=== PATIENT | female | born 2000 | race Caucasian/White ===

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

== ENCOUNTER → 2021-02-18 10:49 | Outpatient (BNVA) | payer MEDICAID, SELFPAY | PROVIDERS: PCP Family Medicine; Visit Provider Nurse Practitioner | DX: R11.2 Nausea with vomiting, unspecified (principal) | CPT/HCPCS: 81000 ==

== ENCOUNTER → 2021-03-29 12:10 | Outpatient (BNVA) | payer MEDICAID, SELFPAY | PROVIDERS: PCP Family Medicine; Visit Provider Obstetrics & Gynecology | DX: Z34.90 Encounter for supervision of normal pregnancy, unspecified, unspecified trimester (principal); F17.219 Nicotine dependence, cigarettes, with unspecified nicotine-induced disorders; F31.81 Bipolar II disorder; F41.8 Other specified anxiety disorders; B00.9 Herpesviral infection, unspecified | CPT/HCPCS: 87491; 87591; 87661 ==

== ENCOUNTER → 2021-04-23 13:06 | Outpatient (BNVA) | payer MEDICAID, SELFPAY | PROVIDERS: PCP Family Medicine; Visit Provider Obstetrics & Gynecology | DX: Z34.80 Encounter for supervision of other normal pregnancy, unspecified trimester (principal) | CPT/HCPCS: 81000; 84443; 85025; 86592; 86762; 86803; 86850; 86900; 87340; 87806 ==

== ENCOUNTER → 2021-05-28 12:50 | Outpatient (BNVA) | payer MEDICAID, SELFPAY | PROVIDERS: PCP Family Medicine; Visit Provider Obstetrics & Gynecology | DX: Z34.90 Encounter for supervision of normal pregnancy, unspecified, unspecified trimester (principal) | CPT/HCPCS: 80307; 81000; 87086 ==

== ENCOUNTER 2021-06-21 10:00 | Outpatient (CLI) | payer MEDICAID, SELFPAY ==
[2021-06-21 10:16] VITALS: BP 118/60; PULSE 89; TEMP 35.8
[2021-06-21 10:45] LABS: Actim Prom Negative
== END 2021-06-21 10:40 | disposition home or self-care (01) ==
LOC: OPOB 10:02 → OBGYN 10:07
PROVIDERS: PCP Family Medicine; Visit Provider Obstetrics & Gynecology
DX: O26.899 Other specified pregnancy related conditions, unspecified trimester (principal); Z3A.00 Weeks of gestation of pregnancy not specified; N89.8 Other specified noninflammatory disorders of vagina
CPT/HCPCS: 81000; 84112; 99211

== ENCOUNTER → 2021-07-27 14:06 | Outpatient (BNVA) | payer MEDICAID, SELFPAY | PROVIDERS: PCP Family Medicine; Visit Provider Obstetrics & Gynecology | DX: Z34.90 Encounter for supervision of normal pregnancy, unspecified, unspecified trimester (principal); B00.9 Herpesviral infection, unspecified; F17.219 Nicotine dependence, cigarettes, with unspecified nicotine-induced disorders; F31.81 Bipolar II disorder; F41.8 Other specified anxiety disorders | CPT/HCPCS: 81000; 82950; 85025 ==

== ENCOUNTER 2021-07-31 00:15 | Emergency (ER) | payer MEDICAID, SELFPAY ==
[2021-07-31 00:20] VITALS: BP 106/72; PULSE 109; RESP 16; O2SAT 96; BMI 22.4
[2021-07-31 00:53] VITALS: BP 119/72; PULSE 118; RESP 18; O2SAT 99
[2021-07-31 01:03] LABS: Basophils # 0.1 10^3/uL (0.0-0.1); Basophils % 0.5 %; Eosinophils # 0.1 10^3/uL (0.0-0.8); Eosinophils % 0.7 %; Hematocrit 38.1 % (37.0-47.0); Lymphocytes # 0.7 10^3/uL (1.5-6.5); Lymphocytes % 3.9 %; Mean Corpuscular HGB Conc 34.1 g/dL (30.0-36.0); Mean Corpuscular Hemoglobin 31.5 pg (28.0-34.0); Mean Corpuscular Volume 92.3 fl (81-99); Mean Platelet Volume 10.7 fL (7.4-10.4); Monocytes # 1.2 10^3/uL (0.2-0.9); Monocytes % 7.1 %; Neutrophils # 14.31 10^3/uL (1.8-8.0); Neutrophils % 85.1 %; Nucleated Red Blood Cells % 0 %; Platelet Count 247 10^3/cmm (130-400); Red Blood Count 4.13 10^6/uL (4.1-5.3); Red Cell Distribution Width 12.6 % (12.1-15.1); White Blood Count 16.8 10^3/uL (4.5-13.0)
[2021-07-31] MEDS: metoclopramide 5 mg/mL SDV 2 mL 10 MG IVP (01:08)
[2021-07-31] MEDS: ondansetron 2 mg/ML SDV 2 mL 4 MG IVP (01:08)
[2021-07-31] MEDS: sodium chloride 0.9% 1,000 ML 999 ML IV ×2 (01:08→02:42)
--- NOTE | 2021-07-31 01:18 | PC.NURSE ---
Doppler FHT 172
[2021-07-31 01:23] VITALS: BP 107/55; PULSE 103; RESP 20; O2SAT 96
[2021-07-31 01:24] LABS: Alanine Aminotransferase 9 U/L (0-33); Albumin Level 4.1 g/dL (3.5-5.2); Alkaline Phosphatase 103 IU/L (35-105); Anion Gap 23.8 (5-19); Aspartate Amino Transferase 16 U/L (0-32); Blood Urea Nitrogen 13 mg/dL (6-20); Calcium 8.9 mg/dL (8.5-10.5); Carbon Dioxide 16 mmol/L (22-29); Chloride 101 mmol/L (98-107); Globulin 3.6 g/dL (1.3-4.6); Glomerular Filtration Rate 203.5 mL/min (90-130); Glucose 96 mg/dL (65-115); Lipase 33 U/L (13-60); Osmolality Calculated 284 mOsm/kg (285-295); Potassium 3.8 mmol/L (3.5-5.1); Sodium 137 mmol/L (136-145); Total Bilirubin 0.5 mg/dL (0.15-1.2); Total Protein 7.7 g/dL (6.6-8.7)
[2021-07-31 01:53] VITALS: BP 95/50; PULSE 101; RESP 18; O2SAT 97
[2021-07-31 02:09] LABS: Add Urine Microscopic? NO; Charge for UA Resulting for Rev
--- NOTE | 2021-07-31 02:15 | ED_ITS ---
HPI - Nausea/Vomiting/Diarrhea General: Chief complaint: Nausea/Vomiting/Diarrhea Stated complaint: N/V/D Time Seen by Provider: 07/31/21 00:36 Source: patient History of Present Illness: Healthy 21-year-old G2, P1 female at 30 weeks of . She presents with 3 days of nausea vomiting and diarrhea. She notes the nausea and vomiting started a couple of days ago, the diarrhea started today. She denies significant fever. She denies cough, but feels mildly short of breath. No sick contacts. She is still feeling her baby move. She has not lost any fluid or had any vaginal bleeding. No history of belly surgery. MD elicited complaint: nausea, vomiting and diarrhea Pertinent past history: other Onset (ago): day(s) Description of vomiting: watery Description of diarrhea: watery Associated nausea: Yes Associated abdominal pain: No Location of pain: None Quality: cramping (Some pelvic cramping) Relieving factors: none Associated symtoms: Reports decreased urine output, anorexia and nausea; Denies bloating, change in vision, chest pain, cough, fecal incontinence or headache(s) Treatment prior to arrival: immodium Review of Systems Const: Denies: fever(s) or chills Eyes: Denies: change in vision ENMT: Denies: throat pain Card: Denies: chest pain Resp: Reports: dyspnea; Denies: productive cough or non-productive cough GI: Reports: nausea, vomiting and GI cramping; Denies: abdominal pain, hematemesis, bloating, fecal incontinence or hematochezia : Denies: flank pain Neuro: Denies: headache(s) PFSH ED PFSH: Medical History ADHD Bipolar 2 disorder Cluster B personality disorder Depression with anxiety PTSD (post-traumatic stress disorder) Surgical History No pertinent past surgical history Family History Grandmother Cancer Paternal--unknown Diabetes Paternal Hyperlipidemia Paternal Hypertension Paternal Stroke Paternal Grandfather Cancer Paternal--unknown Hyperlipidemia Paternal Diabetes Paternal Hypertension Paternal Stroke Paternal Other Alcoholism Psychiatric illness Denies family history of CAD (coronary artery disease) Clotting disorder Chronic kidney disease (CKD) Bleeding disorder Physical Exam Const: GENERAL APPEARANCE: cooperative; not frail appearing HENMT: COMMON NORMALS: normocephalic, atraumatic and Normal external nose present HEAD & SCALP: normocephalic and atraumatic FACE & SINUS: normal facial exam NOSE: Normal external nose present Eye: COMMON NORMALS: Equal, round and reactive pupils present and EOMs intact bilaterally PUPIL: Yes Equal, round and reactive pupils present Neck/C-Spine: COMMON NORMALS: full ROM Chest: CHEST: Yes Symmetrical chest wall rise Cardio: COMMON NORMALS: regular rhythm RATE: tachycardic RHYTHM: regular rhythm GI: COMMON NORMALS: Soft to palpation INSPECTION: Yes gravid abdomen PALPATION: Yes Soft to palpation Extremity: COMMON NORMALS: normal to inspection Neuro: DILIP COMA SCALE: document GCS findings [place] coma scale eye opening: Spontaneous Dilip coma scale verbal response: Orientated [place] coma scale motor response: Obey commands Dilip coma scale total score: 15 Course Vital Signs: Vital signs: Vital Signs Pulse Rate 100 07/31/21 03:34 Respiratory Rate 16 07/31/21 03:34 Blood Pressure 122/71 07/31/21 03:34 Pulse Oximetry 98 07/31/21 03:34 MDM - Nausea/Vomiting/Diarrhea Medical Decision Making Belly is grossly nontender. She is afebrile. She does appear dry clinically. Her white blood cell count is 16.8 with 85% neutrophils. Her bicarbonate level 16. She has 3+ ketones in her urine without UTI. She is feeling much improved after 2 L bolus, with Zofran and Reglan. Her COVID-19 is negative. She will be allowed home. Lab Data : 07/31/21 00:45 07/31/21 00:45 Laboratory Results WBC 16.8 10^3/uL (4.5-13.0) H 07/31/21 00:45 RBC 4.13 10^6/uL (4.1-5.3) 07/31/21 00:45 Hgb 13.0 g/dL (11.5-15.3) 07/31/21 00:45 Hct 38.1 % (37.0-47.0) 07/31/21 00:45 MCV 92.3 fl (81-99) 07/31/21 00:45 MCH 31.5 pg (28.0-34.0) 07/31/21 00:45 MCHC 34.1 g/dL (30.0-36.0) 07/31/21 00:45 RDW 12.6 % (12.1-15.1) 07/31/21 00:45 Plt Count 247 10^3/cmm (130-400) 07/31/21 00:45 MPV 10.7 fL (7.4-10.4) H 07/31/21 00:45 Neut % (Auto) 85.1 % 07/31/21 00:45 Lymph % (Auto) 3.9 % 07/31/21 00:45 [place] % (Auto) 7.1 % 07/31/21 00:45 Eos % (Auto) 0.7 % 07/31/21 00:45 Baso % (Auto) 0.5 % 07/31/21 00:45 Neut # (Auto) 14.31 10^3/uL (1.8-8.0) H 07/31/21 00:45 Lymph # (Auto) 0.7 10^3/uL (1.5-6.5) L 07/31/21 00:45 [place] # (Auto) 1.2 10^3/uL (0.2-0.9) H 07/31/21 00:45 Eos # (Auto) 0.1 10^3/uL (0.0-0.8) 07/31/21 00:45 Baso # (Auto) 0.1 10^3/uL (0.0-0.1) 07/31/21 00:45 Nucleated RBC % (auto) 0 % 07/31/21 00:45 Nucleated RBCs # 0.0 /100WBC 07/31/21 00:45 Sodium 137 mmol/L (136-145) 07/31/21 00:45 Potassium 3.8 mmol/L (3.5-5.1) 07/31/21 00:45 Chloride 101 mmol/L (98-107) 07/31/21 00:45 Carbon Dioxide 16 mmol/L (22-29) L 07/31/21 00:45 Anion Gap 23.8 (5-19) H 07/31/21 00:45 BUN 13 mg/dL (6-20) 07/31/21 00:45 Creatinine 0.4 mg/dL (0.5-0.9) L 07/31/21 00:45 GFR Calculation 203.5 mL/min (90-130) H 07/31/21 00:45 Glucose 96 mg/dL (65-115) 07/31/21 00:45 Calculated Osmolality 284 mOsm/kg (285-295) L 07/31/21 00:45 Calcium 8.9 mg/dL (8.5-10.5) 07/31/21 00:45 Total Bilirubin 0.5 mg/dL (0.15-1.2) 07/31/21 00:45 AST 16 U/L (0-32) 07/31/21 00:45 ALT 9 U/L (0-33) 07/31/21 00:45 Alkaline Phosphatase 103 IU/L (35-105) 07/31/21 00:45 Total Protein 7.7 g/dL (6.6-8.7) 07/31/21 00:45 Albumin 4.1 g/dL (3.5-5.2) 07/31/21 00:45 Globulin 3.6 g/dL (1.3-4.6) 07/31/21 00:45 Lipase 33 U/L (13-60) 07/31/21 00:45 Urine Color Yellow (Yellow) 07/31/21 01:55 Urine Appearance Clear (CLEAR) 07/31/21 01:55 Urine pH 5 (5-7) 07/31/21 01:55 Ur Specific [place] 1.025 (1.005-1.030) 07/31/21 01:55 Urine Protein Neg (Negative) 07/31/21 01:55 Urine Glucose (UA) Norm (Normal) 07/31/21 01:55 Urine Ketones 3+ (Negative) H 07/31/21 01:55 Urine Blood Neg (Negative) 07/31/21 01:55 Urine Nitrate Negative (Negative) 07/31/21 01:55 Urine Bilirubin Neg (Negative) 07/31/21 01:55 Urine Urobilinogen Norm mg/dL (Negative) 07/31/21 01:55 Ur Leukocyte Esterase Negative (Negative) 07/31/21 01:55 SARS-CoV-2 Ag (Rapid) Negative (Negative) 07/31/21 01:55 Discharge Plan Discharge Patient Disposition: Home Clinical Impression: Gastroenteritis Condition: Stable Prescriptions: New ondansetron 4 mg film 4 mg PO DAILY PRN (Reason: nausea and vomiting) Qty: 10 0RF No Action docusate sodium [Colace] 100 mg capsule 100 mg PO BID PRN0RF folic acid 1 mg tablet 1 mg PO DAILY 0RF Gummies 400 mcg-35 mg- 25 mg-5 mg tablet,chewable PO 0RF Discharge Orders: Discharge ED (Routine); Ordered 07/31/21 Ordered By: Vinayak Melendez Referrals: Mirian Pendleton DO [Primary Care Provider] - 1-3 days Discharge Diet: Advance as tolerated and Clear Liquid Activity Restrictions/Additional Instructions: Take the medication you were prescribed every 6 hours while awake for the first 48 hours, then as needed. Return for vomiting liquids despite treatment, fever greater than 100, loss of your water, vaginal bleeding, failure to feel your baby move for an hour, blood in the stool, any other concerning symptoms. Coding Level of Care Code ED Delivery Room Supervisor for Javierg Fwd Exam Comprehensive
[2021-07-31 02:26] LABS: Bilirubin Urine Neg (Negative); Blood Urine Neg (Negative); Glucose Urine UA Norm (Normal); Ketones Urine 3+ (Negative); Leukocyte Esterase Urine Negative (Negative); Nitrate Urine Negative (Negative); Protein Urine Neg (Negative); Specific Gravity, Urine 1.025 (1.005-1.030); Urine Appearance Clear (CLEAR); Urine Color Yellow (Yellow); Urobilinogen Urine Norm (Negative); pH Urine 5 (5-7)
[2021-07-31 02:31] LABS: SARS Covid-2 Antigen Negative (Negative)
[2021-07-31 03:34] VITALS: BP 122/71; PULSE 100; RESP 16; O2SAT 98
== END 2021-07-31 03:35 | disposition home or self-care (01) ==
PROVIDERS: Physician Assistant; Emergency Provider Emergency Medicine; PCP Family Medicine
DX: O99.613 Diseases of the digestive system complicating pregnancy, third trimester (principal); K52.9 Noninfective gastroenteritis and colitis, unspecified; O21.8 Other vomiting complicating pregnancy; Z3A.30 30 weeks gestation of pregnancy; Z20.822 Contact with and (suspected) exposure to COVID-19
CPT/HCPCS: 80053; 81003; 83690; 85025; 87426; 96361; 96374; 96375; 99284; J2405; J2765; J7030

== ENCOUNTER → 2021-08-18 11:15 | Outpatient (BNVA) | payer MEDICAID, SELFPAY | PROVIDERS: PCP Family Medicine; Visit Provider Obstetrics & Gynecology | DX: Z34.80 Encounter for supervision of other normal pregnancy, unspecified trimester (principal) | CPT/HCPCS: 81000 ==

== ENCOUNTER → 2021-08-30 11:07 | Outpatient (BNVA) | payer MEDICAID, SELFPAY | PROVIDERS: PCP Family Medicine; Visit Provider Obstetrics & Gynecology | DX: Z34.80 Encounter for supervision of other normal pregnancy, unspecified trimester (principal) | CPT/HCPCS: 81000; 85025 ==

== ENCOUNTER → 2021-09-10 09:40 | Outpatient (BNVA) | payer MEDICAID, SELFPAY | PROVIDERS: PCP Family Medicine; Visit Provider Obstetrics & Gynecology | DX: Z34.90 Encounter for supervision of normal pregnancy, unspecified, unspecified trimester (principal) | CPT/HCPCS: 81000; 87081 ==

== ENCOUNTER → 2021-09-16 13:36 | Outpatient (BNVA) | payer MEDICAID, SELFPAY | PROVIDERS: PCP Family Medicine; Visit Provider Obstetrics & Gynecology | DX: Z34.90 Encounter for supervision of normal pregnancy, unspecified, unspecified trimester (principal) | CPT/HCPCS: 81000 ==

== ENCOUNTER 2021-09-29 22:42 | Inpatient (IN) | payer MEDICAID, SELFPAY ==
[2021-09-29] VITALS (17 sets, daily range): BP systolic 96–115; BP diastolic 55–72; PULSE 66–112; RESP 18; TEMP 35.8; O2SAT 99–100; BMI 23.1
[2021-09-29] MEDS: dextrose 5%-lactated ringers 1,000 ML 999 ML IV (20:00)
[2021-09-29] MEDS: dextrose 5%-lactated ringers 1,000 ML 125 ML IV (21:55)
[2021-09-29 22:00] LABS: Basophils # 0.1 10^3/uL (0.0-0.1); Basophils % 0.4 %; Eosinophils # 0.1 10^3/uL (0.0-0.8); Eosinophils % 0.4 %; Hematocrit 40.7 % (37.0-47.0); Hemoglobin 13.4 g/dL (11.5-15.3); Lymphocytes % 6.6 %; Mean Corpuscular HGB Conc 32.9 g/dL (30.0-36.0); Mean Corpuscular Hemoglobin 30.2 pg (28.0-34.0); Mean Corpuscular Volume 91.9 fl (81-99); Monocytes # 1.1 10^3/uL (0.2-0.9); Monocytes % 7.3 %; Neutrophils % 84.1 %; Nucleated Red Blood Cells % 0 %; Platelet Count 361 10^3/cmm (130-400); Red Blood Count 4.43 10^6/uL (4.1-5.3); Red Cell Distribution Width 14.7 % (12.1-15.1); White Blood Count 14.5 10^3/uL (4.5-13.0)
[2021-09-29] MEDS: fentaNYL 50 mcg/mL INJ 2mL IVP ×2 (22:01→23:22)
[2021-09-29 22:20] LABS: Amphetamines Screen Urine Negative (Negative); Barbiturates Screen Urine Negative (Negative); Benzodiazepines Screen Urine Negative (Negative); Cocaine Screen Urine Negative (Negative); Opiate Screen Urine Negative (Negative); PCP Screen Urine Negative (Negative); THC Screen Urine Positive (Negative)
[2021-09-29] MEDS: ondansetron 2 mg/ML SDV 2 mL 4 MG IVP (23:23)
[2021-09-30] VITALS (38 sets, daily range): BP systolic 93–141; BP diastolic 50–102; PULSE 65–104; RESP 17–19; TEMP 36.4–37.1; O2SAT 93–100
[2021-09-30] MEDS: fentaNYL 50 mcg/mL INJ 2mL IVP ×4 (01:02→04:59)
[2021-09-30] MEDS: dextrose 5%-lactated ringers 1,000 ML 125 ML IV (01:03)
--- NOTE | 2021-09-30 02:17 | PM.OPHPUD ---
Labor & Delivery H&P Update Date of Procedure: September 30, 2021 Date H&P Performed: 09/16/21 H&P update information: I have reviewed H&P completed within last 30 days, I have examined patient prior to procedure and Changes to prior documentation as noted here Changes to previous documentation: The patient presents to labor and delivery with complaints of painful contractions. Her cervix made change to 4/80/-3 and she will be admitted for labor management. Admission Diagnosis: IUP@ 39 weeks gestation Related Problem List Diagnoses (1) Supervision of normal : (2) HSV-2 (herpes simplex virus 2) infection: (3) Nicotine dependence, cigarettes, with unspecified nicotine-induced disorders: (4) Bipolar 2 disorder: (5) Depression with anxiety:
[2021-09-30] MEDS: ondansetron 2 mg/ML SDV 2 mL 4 MG IVP (03:23)
--- NOTE | 2021-09-30 06:19 | P.PCNOB_ITS ---
Delivery Note: Date of delivery: September 30, 2021 Pre-delivery diagnoses: iup@ 39 weeks Post-delivery diagnoses: same-delivered Procedure: Delivering Physician: hilaria Estimated blood loss (mL): 10 Findings: term female in the REED presentation Pre-Delivery Course: The patient was admitted for active labor. An exam was performed and she had no active herpes lesions visualized. She had AROM at 6cm dilation. She progressed to complete cervical dilation Delivery: The patient had complete cervical dilation and began to push. The head delivered in the REED position over an intact perineum under no anesthesia. The nose and mouth were bulb suctioned. The shoulders and body delivered atraumatically. The baby was placed onto the mother's abdomen. The cord was clamped and cut. The placenta delivered spontaneously. It was inspected and found to be intact. Inspection of the perineum revealed no lacerations and no repair was required. Estimated blood loss 10 mL. Apgars on baby were 8 at 1 minute and 9 at 5 minutes. Weight of baby is 7 pounds 6 ounces. Mother and baby were stable post delivery. History History History 2 Term 1 Miscarriages/Ectopic 0 0 Living Children 1 Coding Level of Care Code Acute Geothermal Operating Engineer for Lynette Patricio
[2021-09-30] MEDS: valACYclovir 1,000 mg Tablet 1000 MG PO (08:02)
[2021-09-30] MEDS: ibuprofen 800 mg tablet PO ×3 (08:45→20:15)
[2021-09-30] MEDS: docusate sodium 100 mg Capsule PO ×2 (08:46→20:15)
[2021-09-30] MEDS: prenatal vitamin Capsule 1 CAP PO (08:46)
--- NOTE | 2021-09-30 13:45 | PC.NURSE ---
DFS immigration case worker talking with patient at this time.
[2021-09-30 19:45] LABS: Hematocrit 33.1 % (37.0-47.0); Hemoglobin 11.1 g/dL (11.5-15.3); Mean Corpuscular HGB Conc 33.5 g/dL (30.0-36.0); Mean Corpuscular Hemoglobin 30.2 pg (28.0-34.0); Mean Corpuscular Volume 89.9 fl (81-99); Mean Platelet Volume 11.1 fL (7.4-10.4); Platelet Count 336 10^3/cmm (130-400); Red Blood Count 3.68 10^6/uL (4.1-5.3); Red Cell Distribution Width 14.6 % (12.1-15.1); White Blood Count 13.8 10^3/uL (4.5-13.0)
[2021-09-30] MEDS: lanolin oint 7 gm 1 APPLIC TOPICAL (20:15)
[2021-10-01 04:00] VITALS: BP 105/70; PULSE 72; RESP 16; TEMP 36.8; O2SAT 98
--- NOTE | 2021-10-01 08:25 | P.DS_ITS ---
Discharge Providers Date of Admission: 09/29/21 22:42 Date of Discharge: October 01, 2021 Attending Provider at Admission: Florinda Morales MD Attending Provider at Discharge: Florinda Morales MD Primary Care Provider: Mirian Pendleton DO Diagnoses at Discharge Discharge Diagnosis (1) Supervision of normal : Status: Acute (2) HSV-2 (herpes simplex virus 2) infection: Status: Acute (3) Nicotine dependence, cigarettes, with unspecified nicotine-induced disorders: Status: Acute (4) Bipolar 2 disorder: Status: Chronic (5) Depression with anxiety: Status: Chronic Reason for Visit Reason for Visit: contractions Hospital Course Hospital Course The patient was admitted in active labor. She had spontaneous delivery of a term . She did well and was ready for discharge on day #1 Physical Exam Narrative: no concerns today Const: COMMON NORMALS: no acute distress, average body habitus, patient oriented x3, no limitations, healthy appearing, alert and well nourished GENERAL APPEARANCE: cooperative, comfortable, well kempt and well developed ORIENTATION/CONSCIOUSNESS: Yes awake, Yes oriented to person, Yes oriented to place and Yes oriented to time Resp: COMMON NORMALS: normal respiratory effort EFFORT & INSPECTION: Yes able to speak in complete sentences GI: COMMON NORMALS: Soft to palpation and non-tender PALPATION: Yes Soft to palpation Extremity: COMMON NORMALS: no calf tenderness Neuro: COMMON NORMALS: patient oriented x3 SENSORIUM/ORIENTATION: Yes alert, Yes oriented to person, Yes oriented to place and Yes oriented to time Psych: APPEARANCE: Yes well kempt Discharge Data Studies Completed and Pending Laboratory Results WBC 13.8 10^3/uL (4.5-13.0) H 09/30/21 18:50 RBC 3.68 10^6/uL (4.1-5.3) L 09/30/21 18:50 Hgb 11.1 g/dL (11.5-15.3) L 09/30/21 18:50 Hct 33.1 % (37.0-47.0) L 09/30/21 18:50 MCV 89.9 fl (81-99) 09/30/21 18:50 MCH 30.2 pg (28.0-34.0) 09/30/21 18:50 MCHC 33.5 g/dL (30.0-36.0) 09/30/21 18:50 RDW 14.6 % (12.1-15.1) 09/30/21 18:50 Plt Count 336 10^3/cmm (130-400) 09/30/21 18:50 MPV 11.1 fL (7.4-10.4) H 09/30/21 18:50 Neut % (Auto) 84.1 % 09/29/21 19:45 Lymph % (Auto) 6.6 % 09/29/21 19:45 [place] % (Auto) 7.3 % 09/29/21 19:45 Eos % (Auto) 0.4 % 09/29/21 19:45 Baso % (Auto) 0.4 % 09/29/21 19:45 Neut # (Auto) 12.20 10^3/uL (1.8-8.0) H 09/29/21 19:45 Lymph # (Auto) 1.0 10^3/uL (1.5-6.5) L 09/29/21 19:45 [place] # (Auto) 1.1 10^3/uL (0.2-0.9) H 09/29/21 19:45 Eos # (Auto) 0.1 10^3/uL (0.0-0.8) 09/29/21 19:45 Baso # (Auto) 0.1 10^3/uL (0.0-0.1) 09/29/21 19:45 Nucleated RBC % (auto) 0 % 09/29/21 19:45 Nucleated RBCs # 0.0 /100WBC 09/29/21 19:45 Urine Opiates Screen Negative ng/mL (Negative) 09/29/21 21:45 Ur Barbiturates Screen Negative ng/mL (Negative) 09/29/21 21:45 Ur Phencyclidine Scrn Negative ng/mL (Negative) 09/29/21 21:45 Ur Amphetamines Screen Negative ng/mL (Negative) 09/29/21 21:45 U Benzodiazepines Scrn Negative ng/mL (Negative) 09/29/21 21:45 Urine Cocaine Screen Negative ng/mL (Negative) 09/29/21 21:45 U Marijuana (THC) Screen Positive ng/mL (Negative) H 09/29/21 21:45 Vitals Last Vital Signs Temp 98.2 F 10/01/21 04:00 Pulse 72 10/01/21 04:00 Resp 16 10/01/21 04:00 BP 105/70 10/01/21 04:00 Pulse Ox 98 10/01/21 04:00 O2 Del Method 10/01/21 04:00 Discharge Plan Discharge Patient Disposition: Home Condition: Stable Prescriptions: Continued docusate sodium [Colace] 100 mg capsule 100 mg PO BID PRN Gummies 400 mcg-35 mg- 25 mg-5 mg tablet,chewable PO valacyclovir 1 gram tablet 1,000 mg PO DAILY Qty: 30 6RF Discharge Orders: Discharge Order (Routine); Ordered 10/01/21 Ordered By: Florinda Morales Patient Instructions: Opioid Safety Discharge Attestations Time Spent in Discharge Care*: less than 30 min Quality Metrics Clinical Quality Measures [ No reported AMI, CVA or VTE this stay] Coding Level of Care Code Acute Chg FW DC note Diagnoses Supervision of normal Z34.90 HSV-2 (herpes simplex virus 2) infection B00.9 Nicotine dependence, cigarettes, with unspecified nicotine-induced disorders F17.219 Bipolar 2 disorder F31.81 Depression with anxiety F41.8
[2021-10-01] MEDS: ibuprofen 800 mg tablet PO (11:36)
[2021-10-01] MEDS: docusate sodium 100 mg Capsule PO (11:36)
[2021-10-01] MEDS: prenatal vitamin Capsule 1 CAP PO (11:36)
[2021-10-01] MEDS: valACYclovir 1,000 mg Tablet 1000 MG PO (11:36)
[2021-10-01 12:00] VITALS: BP 110/67; PULSE 67; RESP 16; TEMP 36.5; O2SAT 99
== END 2021-10-01 12:05 | disposition home or self-care (01) | DRG 806 ==
LOC: OPOB 22:43 → OBGYN 22:43
PROVIDERS: Admitting Provider Obstetrics & Gynecology; PCP Family Medicine; Visit Provider Obstetrics & Gynecology
DX: O99.344 Other mental disorders complicating childbirth (principal); F31.81 Bipolar II disorder; Z37.0 Single live birth; O98.32 Other infections with a predominantly sexual mode of transmission complicating childbirth; O99.334 Smoking (tobacco) complicating childbirth; F17.210 Nicotine dependence, cigarettes, uncomplicated; Z3A.39 39 weeks gestation of pregnancy; F90.9 Attention-deficit hyperactivity disorder, unspecified type; F60.89 Other specific personality disorders; F41.9 Anxiety disorder, unspecified; F43.10 Post-traumatic stress disorder, unspecified; A60.00 Herpesviral infection of urogenital system, unspecified
CPT/HCPCS: 36415; 59025; 59409; 80306; 85025; 85027; 99211; J2405; J3010

== ENCOUNTER 2022-10-27 17:23 | Emergency (ER) | payer BC, MEDICAID, SELFPAY ==
[2022-10-27 17:30] VITALS: BP 118/72; PULSE 72; RESP 16; TEMP 36.3; O2SAT 99
--- NOTE | 2022-10-27 19:29 | W.ED.HA ---
HPI - Headache General: Chief Complaint: Headache Stated Complaint: migraines, dizzy, vomiting Time Seen by Provider: 10/27/22 19:11 History of Present Illness: Patient presents to the ER from urgent care with complaints of a migraine for the last 8 to 9 days. Patient's been able to not get any relief even though using the maximum amount of Tylenol [id number]. Patient states she had lots of nausea and vomiting has not been able to eat or drink anything. Patient does have a history of migraines and other than this 1 being worse it is similar to the ones in the past. Review of Systems General: Reports: 10 or more systems reviewed and unremarkable except in HPI and below PFSH ED PFSH: Medical History ADHD Bipolar 2 disorder Cluster B personality disorder Depression with anxiety PTSD (post-traumatic stress disorder) Surgical History No pertinent past surgical history Family History Grandmother Cancer Paternal--unknown Diabetes Paternal Hyperlipidemia Paternal Hypertension Paternal Stroke Paternal Grandfather Cancer Paternal--unknown Hyperlipidemia Paternal Diabetes Paternal Hypertension Paternal Stroke Paternal Other Alcoholism Psychiatric illness Denies family history of CAD (coronary artery disease) Clotting disorder Chronic kidney disease (CKD) Bleeding disorder Social History Smoking and tobacco status: current every day smoker Substance/Drug Use: never Physical Exam Const: COMMON NORMALS: no acute distress, average body habitus, patient oriented x3, no limitations, healthy appearing, alert and well nourished HENMT: COMMON NORMALS: normocephalic, atraumatic, hearing grossly normal bilaterally, external ears normal, Normal external nose present and moist oral mucous membranes HEAD & SCALP: normocephalic and atraumatic NOSE: Normal external nose present EXTERNAL EAR: Yes external ears normal Eye: COMMON NORMALS: Equal, round and reactive pupils present, EOMs intact bilaterally, conjunctivae normal and no scleral icterus CONJUNCTIVA: Yes conjunctivae normal PUPIL: Yes Equal, round and reactive pupils present Neck/C-Spine: COMMON NORMALS: full ROM, no lymphadenopathy, supple, no meningeal signs, no JVD and Thyroid normal THYROID: Thyroid normal Chest: COMMONS NORMALS: normal inspection of the chest and normal palpation of entire chest wall Resp: COMMON NORMALS: normal respiratory effort, No retractions, No use of accessory muscles and clear to auscultation bilaterally AUSCULTATION: clear to auscultation bilaterally Cardio: COMMON NORMALS: no JVD, regular rate, regular rhythm, S1 normal heart sound present, S2 normal heart sound present, No gallops present (Cardio), No clicks present (Cardio), No murmurs present (Cardio) and No rub (Cardio) RATE: regular rate RHYTHM: regular rhythm HEART SOUNDS: S1 normal heart sound present and S2 normal heart sound present GI: COMMON NORMALS: Normal to inspection, nondistended, normoactive bowel sounds present, Soft to palpation, non-tender, No hepatosplenomegaly present and no masses PALPATION: Yes Soft to palpation and Yes No hepatosplenomegaly present : COMMON NORMALS: Yes no CVA tenderness BLADDER/KIDNEY EXAM: Yes no CVA tenderness Back/Pelvis: COMMON NORMALS: no CVA tenderness Neuro: COMMON NORMALS: patient oriented x3, CN's II-XII intact bilaterally, moves all extremities, no focal motor deficits and no sensory deficits noted SENSORIUM/ORIENTATION: Yes alert MENINGEAL SIGNS: Yes no meningeal signs Course Vital Signs: Vital signs: Vital Signs Temperature 97.3 F L 10/27/22 17:30 Pulse Rate 72 10/27/22 17:30 Respiratory Rate 16 10/27/22 17:30 Blood Pressure 118/72 10/27/22 17:30 Pulse Oximetry 99 10/27/22 17:30 Oxygen Delivery Me thod Room Air 10/27/22 17:30 MDM - Headache Medical Decision Making Presents to the ER for migraine that will not go away. Patient's had 8 to 9 days. Went to urgent care and they sent her over here for further evaluation and treatment. Patient received 1 L bolus of normal saline, Reglan 10 mg, Toradol 30 mg, Benadryl 50 mg all IV, this relieved the pain from 10 to 4 out of 10 in relieve her nausea. Patient was then given Imitrex 6 mg subcu and discharged home to patient is to follow-up with her family practice doctor in the next 7 days or sooner as needed. Differential Diagnosis Likely migraine; Unlikely tension headache, subarachnoid hemorrhage, headache, meningitis, sinusitis or postconcussion syndrome Medical Records I reviewed the patient's medical records. Lab Data I reviewed the patient's lab results. Discharge Plan Discharge Patient Disposition: Home Clinical Impression: Migraine Qualifiers: Migraine type: unspecified Status migrainosus presence: without status migrainosus Intractability: not intractable Qualified Code(s): G43.909 - Migraine, unspecified, not intractable, without status migrainosus Condition: Stable Prescriptions: No Action epinephrine [EpiPen 2-Peter] 0.3 mg/0.3 mL auto-injector 0.3 mg IM Q15M PRN (Reason: anaphylaxis) Qty: 2 0RF Rx Instructions: for 3 doses Discharge Orders: Discharge ED (Routine); Ordered 10/27/22 Ordered By: Andrea Santos Referrals: Mirian Pendleton DO [Primary Care Provider] - 1 week Patient Instructions: Migraine Headache (ED) Activity Restrictions/Additional Instructions: Please follow-up with your family practice doctor next 7 days or sooner as needed. Please return to the ER if your symptoms return or worsen. Coding Level of Care Code ED Hardware Installation Coordinator for Lynette Patricio
[2022-10-27] MEDS: diphenhydrAMINE 50 mg/mL SDV 1mL IVP (19:41)
[2022-10-27] MEDS: metoclopramide 5 mg/mL SDV 2 mL 10 MG IVP (19:41)
[2022-10-27] MEDS: ketorolac 30 mg/mL INJ IVP (19:41)
[2022-10-27] MEDS: sodium chloride 0.9% 1,000 ML 999 ML IV (19:42)
[2022-10-27] MEDS: SUMAtriptan 6 mg/0.5 mL SDV SUBCUT (20:24)
[2022-10-27 20:26] VITALS: BP 118/73; PULSE 60; RESP 16; O2SAT 97
== END 2022-10-27 20:31 | disposition home or self-care (01) ==
PROVIDERS: Emergency Provider Emergency Medicine; PCP Family Medicine
DX: G43.909 Migraine, unspecified, not intractable, without status migrainosus (principal); F17.210 Nicotine dependence, cigarettes, uncomplicated
CPT/HCPCS: 96361; 96372; 96374; 96375; 99284; J1200; J1885; J2765; J3030; J7030

== ENCOUNTER 2022-10-29 15:36 | Emergency (ER) | payer BC, MEDICAID, SELFPAY ==
[2022-10-29 15:39] VITALS: BP 130/71; PULSE 64; RESP 15; TEMP 36.6; O2SAT 97
== END 2022-10-29 20:11 | disposition left against medical advice (07) ==
PROVIDERS: Emergency Provider Family Medicine; PCP Family Medicine
DX: Z53.21 Procedure and treatment not carried out due to patient leaving prior to being seen by health care provider (principal)

== ENCOUNTER 2023-02-16 09:27 | Emergency (ER) | payer BC, MEDICAID, SELFPAY ==
[2023-02-16 09:32] VITALS: BP 119/30; PULSE 103; RESP 16; TEMP 36.7; O2SAT 100; BMI 20.7
[2023-02-16 09:55] VITALS: BP 113/81; PULSE 95; RESP 18; O2SAT 98; O2SAT 99
[2023-02-16 10:03] LABS: Basophils # 0.1 10^3/uL (0.0-0.1); Basophils % 0.6 %; Eosinophils # 0.2 10^3/uL (0.0-0.8); Eosinophils % 1.4 %; Hematocrit 47.4 % (36-47); Lymphocytes # 1.3 10^3/uL (0.8-4.8); Lymphocytes % 8.8 %; Mean Corpuscular HGB Conc 34.6 g/dL (30-55); Mean Corpuscular Hemoglobin 32.9 pg (27-33); Mean Platelet Volume 9.4 fL (7.4-10.4); Monocytes # 0.8 10^3/uL (0.2-0.9); Monocytes % 5.6 %; Neutrophils # 12.51 10^3/uL (1.8-7.7); Neutrophils % 82.9 %; Nucleated Red Blood Cells % 0 %; Platelet Count 344 10^3/cmm (157-399); Red Blood Count 4.99 10^6/uL (3.85-5.65); Red Cell Distribution Width 12.6 % (12.1-15.1); White Blood Count 15.08 10^3/uL (3.29-11.43)
--- NOTE | 2023-02-16 10:08 | CT_ITS ---
WS: [id number] CT scan of the abdomen and pelvis with IV contrast. Additional two-dimensional coronal and sagittal r econstruction was performed. 02/16/2023 Clinical Data: abd pain Comparison: CT abdomen pelvis, 12/18/2017 DLP: 322.[address] scans at [facility] use at least one of these dose optimization techniques: automated e xposure control; mA and/or kV adjustment per patient size (includes targeted exams where dose is matc hed to clinical indication); or iterative reconstruction. Findings: The lower lungs show no nodules, masses or effusions. The liver, gallbladder, spleen, adrenal glands and pancreas are normal. The kidneys show equal bilateral contrast excretion with no cyst or masses. The abdominal aorta is normal in size. No appendicitis or diverticulitis is seen. The stomach, small bowel and colon show no abnormalities. No abscess, adenopathy, ascites, free air, mass or obstruction is seen. The bladder is unremarkable. No inguinal hernia is seen. There is an IUD in the region of the uterus. The bones of the lower thorax, lumbar spine, pelvis, and hips are normal. Impression: Negative CT scan of the abdomen and pelvis.
--- NOTE | 2023-02-16 10:08 | W.ED.ABDPA2 ---
HPI - Abdominal Pain General: Chief Complaint: Abdominal Pain Stated Complaint: abd pain,NV Time Seen by Provider: 02/16/23 09:41 Source: patient Mode of arrival: ambulatory History of Present Illness: 22-year-old female presents emergency room complaining of intermittent abdominal pain for the last several months with nausea and vomiting she has had some nausea today no fever sweats chills no dysuria urgency or frequency no medic easy melena hematemesis coffee-ground emesis MD elicited complaint: abdominal pain Onset (ago): month(s) Pain Consistency: intermittent Location: Suprapubic Severity: moderate Quality: cramping Radiation: none Exacerbating factors: nothing Relieving factors: nothing Associated Symptoms: Reports GI cramping; Denies anorexia, belching, bloating, change in bowel habits, change in stool character, chills, coffee ground emesis, constipation, diarrhea, dyspepsia, dysuria, excessive flatus, fever(s), heartburn, hematochezia, hematuria, hematemesis, fecal incontinence, loose stools, melena, nausea, poor appetite, syncope and vomiting Related Data: Date of Last Menstrual Period: 02/14/23 Review of Systems Const: Denies: fever(s) or chills Card: Denies: chest pain or syncope Resp: Denies: dyspnea GI: Reports: abdominal pain and GI cramping; Denies: nausea, vomiting, hematemesis, coffee ground emesis, heartburn, diarrhea, constipation, bloating, belching, excessive flatus, fecal incontinence, change in bowel habits, change in stool character, hematochezia or melena : Denies: dysuria, urinary frequency, urinary urgency or hematuria Musc: Denies: neck pain or back pain Skin/Breast: Denies: rash PFSH ED PFSH: Medical History Bipolar 2 disorder PTSD (post-traumatic stress disorder) Cluster B personality disorder ADHD Surgical History No pertinent past surgical history Family History Grandmother Cancer Paternal--unknown Diabetes Paternal Hyperlipidemia Paternal Hypertension Paternal Stroke Paternal Grandfather Cancer Paternal--unknown Hyperlipidemia Paternal Diabetes Paternal Hypertension Paternal Stroke Paternal Other Alcoholism Psychiatric illness Denies family history of CAD (coronary artery disease) Clotting disorder Chronic kidney disease (CKD) Anesthesia complication Bleeding disorder Lung disease Social History Smoking and tobacco/nicotine status: current every day tobacco/nicotine user cigarettes Packs smoked per day: 0.5 Alcohol intake: never Substance/Drug Use: current Substance/Drug use frequency: few times a week Lives independently: Yes Marital status: Single Number of children: 2 Current occupational status: employed Current occupation: [employer] needs: No Agree to transfusion: Yes Female Reproductive History: Date of last menstrual period: 02/14/23 Physical Exam Const: COMMON NORMALS: no acute distress GENERAL APPEARANCE: cooperative and comfortable ORIENTATION/CONSCIOUSNESS: Yes awake, Yes oriented to person, Yes oriented to place and Yes oriented to time HENMT: COMMON NORMALS: normocephalic, atraumatic and hearing grossly normal bilaterally HEAD & SCALP: normocephalic and atraumatic Resp: COMMON NORMALS: normal respiratory effort, No retractions, No use of accessory muscles and clear to auscultation bilaterally AUSCULTATION: clear to auscultation bilaterally Cardio: COMMON NORMALS: regular rate, regular rhythm and No murmurs present (Cardio) RATE: regular rate RHYTHM: regular rhythm GI: COMMON NORMALS: Soft to palpation and No hepatosplenomegaly present AUSCULTATION: Yes normoactive bowel sounds PALPATION: Yes Soft to palpation, No Tenderness to palpation present (GI), No Guarding due to palpation present (GI) and Yes No hepatosplenomegaly present Extremity: COMMON NORMALS: normal to inspection, capillary refill normal, no clubbing, cyanosis or edema, no calf tenderness and no pedal edema Neuro: SENSORIUM/ORIENTATION: Yes oriented to person, Yes oriented to place and Yes oriented to time Skin: COMMON NORMALS: no rashes or lesions noted GENERAL SKIN EXAM: no rashes or lesions noted Course Vital Signs: Vital signs: Vital Signs Temperature 98.0 F 02/16/23 09:32 Pulse Rate 99 02/16/23 11:15 Respiratory Rate 16 02/16/23 11:15 Blood Pressure 113/87 02/16/23 11:15 Pulse Oximetry 100 02/16/23 11:15 Oxygen Delivery Me thod Room Air 02/16/23 09:55 MDM - Abdominal Pain Medical Decision Making Mild elevation of white count CT negative urine unremarkable. No acute abdomen on exam. Mirena in place no displacement or abnormality patient offered IV fluids and antiemetics declined discharge home follow-up with primary care for her chronic abdominal pain may need further evaluation possibly including a HIDA scan or endoscopy which primary care can arrange for Differential Diagnosis Likely abdominal pain and gastroenteritis Medical Records I reviewed the patient's medical records. Lab Data I reviewed the patient's lab results. 02/16/23 09:55 02/16/23 09:55 Labs/Radiology: Laboratory Results WBC 15.08 10^3/uL (3.29-11.43) H 02/16/23 09:55 RBC 4.99 10^6/uL (3.85-5.65) 02/16/23 09:55 Hgb 16.40 g/dL (11.27-16.99) 02/16/23 09:55 Hct 47.4 % (36-47) H 02/16/23 09:55 MCV 95.0 fl (85-98) 02/16/23 09:55 MCH 32.9 pg (27-33) 02/16/23 09:55 MCHC 34.6 g/dL (30-55) 02/16/23 09:55 RDW 12.6 % (12.1-15.1) 02/16/23 09:55 Plt Count 344 10^3/cmm (157-399) 02/16/23 09:55 MPV 9.4 fL (7.4-10.4) 02/16/23 09:55 Neut % (Auto) 82.9 % 02/16/23 09:55 Lymph % (Auto) 8.8 % 02/16/23 09:55 [place] % (Auto) 5.6 % 02/16/23 09:55 Eos % (Auto) 1.4 % 02/16/23 09:55 Baso % (Auto) 0.6 % 02/16/23 09:55 Neut # (Auto) 12.51 10^3/uL (1.8-7.7) H 02/16/23 09:55 Lymph # (Auto) 1.3 10^3/uL (0.8-4.8) 02/16/23 09:55 [place] # (Auto) 0.8 10^3/uL (0.2-0.9) 02/16/23 09:55 Eos # (Auto) 0.2 10^3/uL (0.0-0.8) 02/16/23 09:55 Baso # (Auto) 0.1 10^3/uL (0.0-0.1) 02/16/23 09:55 Nucleated RBC % (auto) 0 % 02/16/23 09:55 Nucleated RBCs # 0.0 /100WBC 02/16/23 09:55 Sodium 140 mmol/L (136-145) 02/16/23 09:55 Potassium 3.8 mmol/L (3.5-5.1) 02/16/23 09:55 Chloride 100 mmol/L (98-107) 02/16/23 09:55 Carbon Dioxide 28 mmol/L (22-29) 02/16/23 09:55 Anion Gap 15.8 (5-19) 02/16/23 09:55 BUN 11 mg/dL (6-20) 02/16/23 09:55 Creatinine 0.5 mg/dL (0.5-0.9) 02/16/23 09:55 GFR Calculation 155.7 mL/min (90-130) H 02/16/23 09:55 Glucose 108 mg/dL (65-115) 02/16/23 09:55 Calculated Osmolality 290 mOsm/kg (285-295) 02/16/23 09:55 Calcium 9.5 mg/dL (8.5-10.5) 02/16/23 09:55 Total Bilirubin 0.4 mg/dL (0.15-1.2) 02/16/23 09:55 AST 21 U/L (0-32) 02/16/23 09:55 ALT 18 U/L (0-33) 02/16/23 09:55 Alkaline Phosphatase 85 U/L (35-105) 02/16/23 09:55 Total Protein 9.0 g/dL (6.6-8.7) H 02/16/23 09:55 Albumin 5.1 g/dL (3.5-5.2) 02/16/23 09:55 Globulin 3.9 g/dL (1.3-4.6) 02/16/23 09:55 Lipase 35 U/L (13-60) 02/16/23 09:55 HCG, Qual Negative (Negative) 02/16/23 09:55 Urine Color Yellow (Yellow) 02/16/23 09:45 Urine Appearance Cloudy (CLEAR) A 02/16/23 09:45 Urine pH 6 (5-7) 02/16/23 09:45 Ur Specific [place] 1.020 (1.005-1.030) 02/16/23 09:45 Urine Protein Neg (Negative) 02/16/23 09:45 Urine Glucose (UA) Norm (Normal) 02/16/23 09:45 Urine Ketones Negative (Negative) 02/16/23 09:45 Urine Blood Neg (Negative) 02/16/23 09:45 Urine Nitrate Positive (Negative) H 02/16/23 09:45 Urine Bilirubin Neg (Negative) 02/16/23 09:45 Urine Urobilinogen Norm mg/dL (Negative) 02/16/23 09:45 Ur Leukocyte Esterase Negative (Negative) 02/16/23 09:45 Urine RBC 0-4 /hpf (0-2) H 02/16/23 09:45 Urine WBC 5-10 /hpf (0-5) H 02/16/23 09:45 Ur Squamous Epith Cells 5-10 /hpf (0-5) H 02/16/23 09:45 Amorphous Sediment Not Reportable 02/16/23 09:45 Urine Bacteria 4+ /hpf (NONE) H 02/16/23 09:45 Urine Mucus 2+ /hpf 02/16/23 09:45 All radiology interpretation(s) finalized by discharge Discharge Plan Discharge Patient Disposition: Home Clinical Impression: Gastroenteritis Condition: Stable Prescriptions: New promethazine 25 mg tablet 25 mg PO Q6H PRN (Reason: nausea and vomiting) Qty: 20 0RF No Action epinephrine [EpiPen 2-Peter] 0.3 mg/0.3 mL auto-injector 0.3 mg IM Q15M PRN (Reason: anaphylaxis) Qty: 2 0RF Rx Instructions: for 3 doses sumatriptan succinate 25 mg tablet See Rx Instructions PO .COMPLEX Qty: 30 1RF Rx Instructions: take 1 tab at onset of headache as needed; if no relief may repeat 1 tab after at least 2 hrs; max = 4 tabs/24 hr PO Tylenol Ex Str Rapid Release 500 mg Tablet 1,000 mg PO Q6H PRN (Reason: Headache) Discharge Orders: Discharge ED (Routine); Ordered 02/16/23 Ordered By: Mansoor Jarrett Referrals: Rodrick Pierce MD [Primary Care Provider] - Patient Instructions: Opioid Safety, Pain Management Coding Level of Care Code ED Consulting Business Developer for Lynette Patricio
[2023-02-16 10:16] LABS: Add Urine Microscopic? YES; Bilirubin Urine Neg (Negative); Blood Urine Neg (Negative); Glucose Urine UA Norm (Normal); Ketones Urine Negative (Negative); Leukocyte Esterase Urine Negative (Negative); Nitrate Urine Positive (Negative); Protein Urine Neg (Negative); Urine Appearance Cloudy (CLEAR); Urine Color Yellow (Yellow); Urobilinogen Urine Norm (Negative); pH Urine 6 (5-7)
[2023-02-16 10:19] LABS: Add Urine Culture? Yes; Bacteria Urine 4+ /hpf; Mucus Urine 2+ /hpf; RBC Urine 0-4 /hpf (0-2)
[2023-02-16 10:22] LABS: HCG, Serum Qual Negative (Negative)
[2023-02-16 10:24] LABS: Alanine Aminotransferase 18 U/L (0-33); Albumin Level 5.1 g/dL (3.5-5.2); Alkaline Phosphatase 85 U/L (35-105); Anion Gap 15.8 (5-19); Aspartate Amino Transferase 21 U/L (0-32); Blood Urea Nitrogen 11 mg/dL (6-20); Calcium 9.5 mg/dL (8.5-10.5); Carbon Dioxide 28 mmol/L (22-29); Chloride 100 mmol/L (98-107); Globulin 3.9 g/dL (1.3-4.6); Glomerular Filtration Rate 155.7 mL/min (90-130); Glucose 108 mg/dL (65-115); Lipase 35 U/L (13-60); Osmolality Calculated 290 mOsm/kg (285-295); Potassium 3.8 mmol/L (3.5-5.1); Sodium 140 mmol/L (136-145); Total Bilirubin 0.4 mg/dL (0.15-1.2)
[2023-02-16 10:28] VITALS: BP 127/95; PULSE 95; RESP 16; O2SAT 95
--- NOTE | 2023-02-16 11:01 | PC.PHAR ---
pt states she takes care of her own medications-ext shows propranolol 40mg daily filled 12/19/22 30d/s pt states she never took states her sister is an rn and told her not to take with her low blood pressure-pt states only takes the medications entered
[2023-02-16] MEDS: iohexol 350 mg/mL 500 mL Btl (per mL) IV (11:10)
[2023-02-16 11:15] VITALS: BP 113/87; PULSE 99; RESP 16; O2SAT 100
[2023-02-16] MEDS: ondansetron 2 mg/ML SDV 2 mL 4 MG IVP (13:00)
[2023-02-16 13:22] VITALS: BP 118/71; PULSE 99; RESP 16; O2SAT 99
== END 2023-02-16 13:28 | disposition home or self-care (01) ==
PROVIDERS: Emergency Provider Family Medicine; PCP Family Medicine
DX: K52.9 Noninfective gastroenteritis and colitis, unspecified (principal); F17.210 Nicotine dependence, cigarettes, uncomplicated
CPT/HCPCS: 36415; 74177; 80053; 81001; 83690; 84703; 85025; 87077; 87086; 87186; 96374; 99285; J2405; Q9967

== ENCOUNTER 2023-12-01 00:04 | Emergency (ER) | payer BC, MEDICAID, SELFPAY ==
[2023-12-01 00:11] VITALS: BP 150/82; PULSE 84; RESP 16; TEMP 36.8; O2SAT 96; BMI 23.2
[2023-12-01 00:32] VITALS: BP 127/86; PULSE 71; RESP 16; O2SAT 97
--- NOTE | 2023-12-01 00:32 | ED_ITS ---
HPI - Nausea/Vomiting/Diarrhea General: Chief complaint: Nausea/Vomiting/Diarrhea Stated complaint: 3 days n/v tremors- alcohol with drawal Time Seen by Provider: 12/01/23 00:06 History of Present Illness: 23-year-old female who reports that she is a heavy vodka drinker and has been trying to wean herself off of her last 3 days. She reports feeling diaphoretic and shaky. She has had some nausea. No vomiting. Vitals are normal on presentation. Slightly hypertensive initially but that improved. No tachycardia. No history of seizures associated with withdrawal. Related Data Home Medications Medication Instructions Recorded Confirmed acetaminophen 500 mg tablet 1,000 mg PO Q6H PRN Headache 02/16/23 11/26/23 Previous Rx's Medication Instructions Recorded epinephrine 0.3 mg/0.3 mL 0.3 mg (0.3 mL) IM Q15M PRN 09/26/22 injection, auto-injector (EpiPen anaphylaxis #2 ea 2-Peter) sumatriptan succinate 25 mg tablet See Rx Instructions PO .COMPLEX 12/19/22 #30 tabs promethazine 25 mg tablet 25 mg PO Q6H PRN nausea and 02/16/23 vomiting #20 tabs fluconazole 150 mg tablet 150 mg PO Q3D 2 doses #2 tabs 11/20/23 ondansetron HCl 4 mg tablet 4 mg PO Q8H PRN nausea and 11/26/23 vomiting #10 tabs hydroxyzine HCl 25 mg tablet 25 mg PO BID PRN anxiety #30 tabs 12/01/23 Allergies Allergy/AdvReac Type Severity Reaction Status Date / Time bee venom protein (honey bee) Allergy Severe anaphylactic Verified 11/20/23 09:00 shock lidocaine Allergy Severe can't Verified 11/20/23 09:00 breath Review of Systems Narrative: Constitutional symptoms: Negative except as documented in HPI. Skin symptoms: Negative except as documented in HPI. Eye symptoms: Negative except as documented in HPI. ENMT symptoms: Negative except as documented in HPI. Respiratory symptoms: Negative except as documented in HPI. Cardiovascular symptoms: Negative except as documented in HPI. Gastrointestinal symptoms: Negative except as documented in HPI. Genitourinary symptoms: Negative except as documented in HPI. Musculoskeletal symptoms: Negative except as documented in HPI. Neurologic symptoms: Negative except as documented in HPI. Psychiatric symptoms: Negative except as documented in HPI. Endocrine symptoms: Negative except as documented in HPI. PFSH ED PFSH: Medical History Bipolar 2 disorder PTSD (post-traumatic stress disorder) Cluster B personality disorder ADHD Surgical History No pertinent past surgical history Family History Grandmother Cancer Paternal--unknown Diabetes Paternal Hyperlipidemia Paternal Hypertension Paternal Stroke Paternal Grandfather Cancer Paternal--unknown Hyperlipidemia Paternal Diabetes Paternal Hypertension Paternal Stroke Paternal Other Alcoholism Psychiatric illness Denies family history of CAD (coronary artery disease) Clotting disorder Chronic kidney disease (CKD) Anesthesia complication Bleeding disorder Lung disease Social History Smoking and tobacco/nicotine status: unknown if used tobacco/nicotine Physical Exam Narrative: EXAM NARRATIVE: General: Alert, no acute distress. Skin: Warm, dry. Head: Normocephalic, atraumatic. Neck: Supple, trachea midline. Eye: Extraocular movements are intact. Ears, nose, mouth and throat: mucosa moist. Cardiovascular: Regular, Normal peripheral perfusion. Respiratory: Lungs are clear to auscultation, respirations are non-labored, breath sounds are equal, Symmetrical chest wall expansion. Gastrointestinal: Soft, Nontender, Non distended Musculoskeletal: Normal ROM, no deformity. Neurological: Alert and oriented, No focal neurological deficit observed. Psychiatric: Cooperative, appropriate mood & affect. Course Vital Signs: Vital signs: Vital Signs Temperature 98.2 F 12/01/23 00:11 Pulse Rate 71 12/01/23 00:32 Respiratory Rate 16 12/01/23 00:32 Blood Pressure 127/86 12/01/23 00:32 Pulse Oximetry 97 12/01/23 00:32 Oxygen Delivery Me thod Room Air 12/01/23 00:32 MDM - Nausea/Vomiting/Diarrhea Medical Decision Making Assessment and plan: Alcohol abuse Alcohol withdrawal symptoms Dehydration ?Patient has fairly mild withdrawal symptoms. Giving fluids for mild dehydration. Compazine and Benadryl and Zofran for symptoms. - Discharged home - Discussed plan with patient. Answered any questions. - Evaluation and treatment of this problem were appropriate in the emergency setting. No radiology studies performed this visit Discharge Plan Discharge Patient Disposition: Home Clinical Impression: Alcohol abuse, Dehydration Condition: Stable Prescriptions: New hydroxyzine HCl 25 mg tablet 25 mg PO BID PRN (Reason: anxiety) Qty: 30 0RF No Action epinephrine [EpiPen 2-Peter] 0.3 mg/0.3 mL auto-injector 0.3 mg IM Q15M PRN (Reason: anaphylaxis) Qty: 2 0RF Rx Instructions: for 3 doses ondansetron HCl 4 mg tablet 4 mg PO Q8H PRN (Reason: nausea and vomiting) Qty: 10 0RF sumatriptan succinate 25 mg tablet See Rx Instructions PO .COMPLEX Qty: 30 1RF Rx Instructions: take 1 tab at onset of headache as needed; if no relief may repeat 1 tab after at least 2 hrs; max = 4 tabs/24 hr PO fluconazole 150 mg tablet 150 mg PO Q3D Qty: 2 0RF Tylenol Ex Str Rapid Release 500 mg Tablet 1,000 mg PO Q6H PRN (Reason: Headache) promethazine 25 mg tablet 25 mg PO Q6H PRN (Reason: nausea and vomiting) Qty: 20 0RF Discharge Orders: Discharge ED (Routine); Ordered 12/01/23 Ordered By: Trice Beckman Discharge Diet: Usual diet Discharge Activity: Increase activity as tolerated Patient Instructions: Abuse of Alcohol (ED) Activity Restrictions/Additional Instructions: Thank you for choosing [facility] for your healthcare needs today. Please realize this is an emergency room and that we are providing you with a medical screening exam and this may not be complete and all inclusive of all the testing and or work up that you may need to determine your ailment or severity of your illness. You have been screened and evaluated and felt safe for discharge. Health conditions do change or evolve sometimes and as such it is important that you follow up with your Primary Doctor to be re checked, 3-5 days is a general good time frame for follow up. You are always welcome to return to the ED for re assessment if your symptoms are worsening or you have new concerns Coding Level of Care Code ED Sales Communications Manager for Lynette Patricio
[2023-12-01] MEDS: ondansetron 2 mg/ML SDV 2 mL 4 MG IVP (00:39)
[2023-12-01] MEDS: diphenhydrAMINE 50 mg/mL SDV 1mL 25 MG IVP (00:39)
[2023-12-01] MEDS: prochlorperazine 10 mg/2 mL Inj IVP (00:41)
[2023-12-01] MEDS: sodium chloride 0.9% 1,000 ML 999 ML IV (00:42)
[2023-12-01 02:03] VITALS: BP 90/75; PULSE 83; RESP 16; O2SAT 98
== END 2023-12-01 02:05 | disposition home or self-care (01) ==
PROVIDERS: Emergency Provider Emergency Medicine
DX: F10.139 Alcohol abuse with withdrawal, unspecified (principal); E86.0 Dehydration
CPT/HCPCS: 96374; 96375; 99284; J0780; J1200; J2405; J7030

== ENCOUNTER → 2024-11-30 13:36 | Outpatient (BNVA) | payer BC, MEDICAID, SELFPAY | PROVIDERS: Visit Provider Emergency Medicine | DX: S99.922A Unspecified injury of left foot, initial encounter (principal); X58.XXXA Exposure to other specified factors, initial encounter | CPT/HCPCS: 73630 ==

== ENCOUNTER 2025-01-30 12:44 | Emergency (ER) | payer BC, MEDICAID, SELFPAY ==
[2025-01-30 12:49] VITALS: BP 115/95; PULSE 102; RESP 20; O2SAT 96; BMI 20.7
--- OUTSIDE RECORDS SUMMARY | 2025-01-30 12:51 | XMS_ITS | Data Portability ---
Author Organization [facility] Krzysztof Umaña [facility] Armand Alacla [facility] Address [address] [place] [address] Care Team Providers Care Infection Control Preventionist Name Role Phone JOHN PARKER Primary Care Provider [phone] RAYMOND ARANGO Primary Care Provider Assessment Encounter Date Assessment Date Assessment LastModified by Organization Details LastModified Time 03/20/2024 03/20/2024 Patient here today to establish care. She has an 8 year old and a 2 year old. She has not seen a regular doctor for a while. Dr. Grossman and Dr. Morales delivered her children. Not available 03/20/2024 13:44:54 05/02/2024 05/02/2024 Patient does not feel like the fluoxetine has been very helpful. She is struggling to sleep at night. She is concerned about the sexual side effects of SSRIs. Her mom is here with her today and reports the whole family suffers from mental health issues. Her mom reports she has been on Xanax since 1991 and it is all that ever helped her. Not available 05/03/2024 19:20:54 05/30/2024 05/30/2024 Patient here today to recheck her medication change from last visit. She doesn't feel like the paroxetine has been very helpful. She has not been drinking still but has been smoking cigarettes and weed. Will try to add some seroquel to help with her anxiety to see if it helps her sleep better as well. She will wait to start it until her returns for the weekend. Not available 05/30/2024 17:54:17 07/09/2024 07/09/2024 Denies opioid abuse. She would like to get on Vivitrol because she does not take oral medication very well and she feels like this would be the best for her success. Not available 07/09/2024 12:41:42 Plan of Treatment Reminders Order Date Submit Date Provider Last Modified By Organization Details Last Modified Time Details Appointments None recorded. Lab CMP, serum or plasma 2024 [facility], [address], [place], [address], 16:23:53 CBC 2024 [facility], [address], [place], [address], 14:23:06 TSH, serum or plasma 2024 9 [facility], [address], [place], [address], 10:06:16 Referral None recorded. Procedures None recorded. Surgeries None recorded. Imaging None recorded. Medication Orders EpiPen 2-Peter 0.3 mg/0.3 mL injection, auto-inject or 2024 [id number], [address], [place], [place], [id number], 15:00:55 naltrexone 50 mg tablet 2024 [facility] #05395, [address], [place], [place], [id number], 14:57:52 Seroquel 25 mg tablet 2024 [facility], [address], [place], [place], [id number], 11:54:58 buspirone 10 mg tablet 2024 025 [facility] #70263, [address], [place], [place], [id number], 14:52:28 ondansetron HCl 4 mg tablet 2024 025 [facility] #29776, [address], [place], [place], [id number], 11:54:51 paroxetine 20 mg tablet 2024 025 [facility] #74976, [address], [place], [place], [id number], 5 11:54:47 buspirone 5 mg tablet 2024 025 [facility] #67264, [address], [place], [place], [id number], 5 15:53:06 valacyclovi r 500 mg tablet 2024 025 [facility] #[id number], [address] [facility], [place], [address], 13:47:21 Drysol 20 % topical solution [address] [id number], [address] [facility], [place], [address], 5 14:26:55 Prozac 20 mg capsule [id number], [address] [facility], [place], [address], 5 14:26:46 Patient TargetsNo targets recorded. Patient Instructions Encounter Date Encounter Id Patient Instructions Last Modified By Organization Details Last Modified Time 03/20/2024 [id number] alcohol detoxification and withdrawal: care instructions Not available 03/20/2024 13:47:18 Call or return f or questions or concerns. Not available 03/20/2024 13:45:01 05/02/2024 [id number] Call or return f or questions or concerns. Not available 05/02/2024 14:46:05 05/30/2024 [id number] Call or return f or questions or concerns. Not available 05/30/2024 17:54:28 07/09/2024 [id number] Call or return f or questions or concerns. Not available 2024 09:58:13 Reason for Referral None Reported. Results Created Date Observation Date Name Description Value Unit Range Abnormal Flag Note LastModifiedBy Organization Detail LastModifiedTime 03/20/1903/20/2024 CBC WBC 7.3 x10 4.0-10 .5 Not Available [facility] [address] [facility] [address], [place], [address], 03/20/2024 14:23:06 03/20/1903/20/2024 CBC RBC 4.49 x10 3.50-5 .50 Not Available [facility] [address] [facility] [address], [place], [address], 03/20/2024 14:23:06 03/20/1903/20/2024 CBC HGB 16.2 g/dL 12.0-1 6.0 high Not Available [facility] [address] [facility] [address], [place], [address], 03/20/2024 14:23:06 03/20/1903/20/2024 CBC HCT 44.2 % 37.0-4 7.0 Not Available [facility] [address] [facility] [address], [place], [address], 03/20/2024 14:23:06 03/20/1903/20/2024 CBC MCV 98.5 fL 80.0-9 9.9 Not Available [facility] [address] [facility] [address] [email or web address] 1, [place], [address], 03/20/2024 14:23:06 03/20/1903/20/2024 CBC MCH 36.1 pg 27.0-3 2.0 high Not Available [facility] [address] [facility], [place], [address], 03/20/2024 14:23:06 03/20/19 25 03/20/2024 CBC MCHC 36.7 g/dL 32.0-3 6.0 high Not Available [facility] [address] [facility], [place], [address], 03/20/2024 14:23:06 03/20/19 25 03/20/2024 CBC RDW 12.6 % 11.5-1 4.5 Not Available [facility] [address] [facility] [address], [place], [address], 03/20/2024 14:23:06 03/20/1903/20/2024 CBC plt 258.0 x10 140.0- 451.0 Not Available [facility] [address] [facility] [address], [place], [address], 03/20/2024 14:23:06 03/20/1903/20/2024 CBC lymphocytes % 19.8 % 20.0-5 0.0 low Not Available [facility] [address] [facility] [address], [place], [address], 03/20/2024 14:23:03/20/1903/20/2024 CBC granulcytes % 65.6 % 30.0-7 0.0 Not Available [facility] [address] [facility] [address], [place], [address], 03/20/2024 14:23:06 03/20/19 25 03/20/2024 CBC monocytes % 8.9 % 2.0-16 .0 Not Available [facility] [address] [address], [place], [address], 03/20/2024 14:23:06 03/20/19 25 03/20/2024 CBC granulcytes# 4.8 x10 Not Randi ilable [facility] [address] [address], [place], [address], 03/20/2024 14:23:06 03/20/19 25 03/20/2024 CBC lymphocytes # 1.4 x10 Not Available [facility] [address] [address], [place], [address], 03/20/2024 14:23:06 03/20/19 25 03/20/2024 CBC monocytes # 0.7 x10 Not Avai lable [facility] [address] [address], [place], [address], 03/20/2024 14:23:06 03/20/19 25 03/20/2024 CMP (FEMA LE) glucose 95.0 mg/dL 60.0-9 9.0 Not Available [facility] [address] [address], [place], [address], 03/20/2024 16:23:53 03/20/19 25 03/20/2024 CMP (FEMA LE) BUN (blood urea nitrogen) 10.0 mg/dL 10.0-2 6.0 Not Available [facility] [address], [address], 03/20/2024 16:23:53 03/20/19 25 03/20/2024 CMP (FEMA LE) creatinine (serum) 0.5 mg/dL 0.4-1. 5 Not Available [facility] [address] [place], [address], 03/20/2024 16:23:53 03/20/19 25 03/20/2024 CMP (FEMA LE) BUN/creatini ne ratio 20.00 ratio Not Available [facility] [address] [facility] [[email or web address] [address], [place], [address], 03/20/2024 16:23:53 03/20/19 25 03/20/2024 CMP (FEMA LE) eGFR calculated 164.0 Not Available [facility] [address] [facility] [address], [place], [address], 03/20/2024 16:23:53 03/20/19 25 03/20/2024 CMP (FEMA LE) total protein 9.7 g/dL 6.0-8. 5 high Not Available [facility] [address] [facility], [place], [address], 03/20/2024 16:23:53 03/20/19 25 03/20/2024 CMP (FEMA LE) total bilirubin 0.8 mg/dL 0.2-1. 3 Not Available [facility] [address] [facility] [address], [place], [address], 03/20/2024 16:23:53 03/20/19 25 03/20/2024 CMP (FEMA LE) albumin 5.4 g/dL 3.5-5. 5 Not Available [facility] [address] [facility] [address], [place], [address], 03/20/2024 16:23:53 03/20/19 25 03/20/2024 CMP (FEMA LE) globulin 4.3 calc Not Available [facility] [address] [facility] [address], [place], [address], 03/20/2024 16:23:53 03/20/19 25 03/20/2024 CMP (FEMA LE) AST (SGOT) 44.0 U/L 0.0-46 .0 Not Available [facility] [address] [facility] [address], [place], [address], 03/20/2024 16:23:53 03/20/19 25 03/20/2024 CMP (FEMA LE) altv (SGPT) 45.0 U/L 13.0-6 9.0 normal Not Available [facility] [address] [facility] [address], [place], [address], 03/20/2024 16:23:53 03/20/19 25 03/20/2024 CMP (FEMA LE) A/G ratio 1.3 ratio Not Available [facility] [address] [address], [place], [address], 03/20/2024 16:23:53 03/20/19 25 03/20/2024 CMP (FEMA LE) ALP phos 67.0 U/L 30.0-1 40.0 normal Not Available [facility] [address] [address], [place], [address], 03/20/2024 16:23:53 03/20/19 25 03/20/2024 CMP (FEMA LE) calcium 9.9 mg/dL 8.4-10 .5 Not Available [facility] [address] [address], [place], [address], 03/20/2024 16:23:53 03/20/19 25 03/20/2024 CMP (FEMA LE) sodium 137.0 mmol/ L 136.0- 145.0 Not Available [facility] [address] [facility] [address], [place], [address], 03/20/2024 16:23:53 03/20/19 25 03/20/2024 CMP (FEMA LE) potassium 3.9 mmol/ L 3.5-5. 1 Not Available [facility] [address] [facility] [address], [place], [address], 03/20/2024 16:23:53 03/20/19 25 03/20/2024 CMP (FEMA LE) chloride 108.0 mmol/ L 98.0-1 10.0 normal Not Available [facility] [address] [facility] [address], [place], [address], 03/20/2024 16:23:53 03/20/19 25 03/20/2024 CMP (FEMA LE) C02 24.0 mmol/ L 22.0-3 1.0 Not Available [facility] [address] [facility] [address], [place], [address], 03/20/2024 16:23:53 03/20/19 25 03/20/2024 CMP (FEMA LE) anion gap 5.0 calc Not Available [facility] [address] [address], [place], [address], 03/20/2024 16:23:53 03/20/19 25 03/20/2024 CMP (FEMA LE) osmolality 282.1 calc Not Available [facility] [address] [address], [place], [address], 03/20/2024 16:23:53 03/20/19 25 03/20/2024 TSH TSH 1.65 uIU/m L 0.49-3 .82 Not Available [facility] [address] [address], [place], [address], 03/20/2024 16:29:46 Result Notes None recorded. Problems Name Problem SNOMED Code Status Onset Date Resolution Date Notes Provider Name and Address Organization Details Recorded Time Genital herpes simplex 70624560 Active 025 dx age 17 KIET TURCIOS [facility] [place] - [facility], LHarsha 01/15/202 5 13:20:17 History of alcohol abuse 270994995 [facility] 20:26:43 Mixed anxiety and depressive disorder 176715422 Active 025 [facility] 20:26:53 History of alcohol use disorder Active John Parker MD [address] [place] [address], [address], [facility] 5 14:52:20 Problem Notes None recorded. Medical Equipment None Reported. Allergies Allergen ID Allergen Name Allergen Category Reaction Reaction Severity Criticality Documentation Date Start Date Code Code System Note Provider Name and Address Organization Details Recorded Time 45739 lidocaine hydrochlo ride medicatio n Not available Not available Not available 10/01/2022 73292 0 RxNorm [facility] 5 13:22:11 57123 honey bee venom medicatio n Not available Not available Not available 07/24/2024 78243 7 RxNorm Grazyna Oseguera [facility] 5 14:36:11 Medications Name Sig Start Date Stop Date Status Note LastModified by Organization Details LastModified Time quetiapin e 25 mg tablet TAKE 1 TABLET BY MOUTH EVERY DAY 07/09 completed Not Available Not Available Not Available buspirone 5 mg tablet TAKE 1 TABLET BY MOUTH TWICE DAILY NEEDED 05/30 completed Not Available Not Available Not Available fluconazo le 150 mg tablet TAKE 1 TABLET BY MOUTH EVERY 3 DAYS FOR 2 DOSES 03/20 completed Not Available Not Available Not Available naltrexon e 50 mg tablet TAKE 1 TABLET BY MOUTH EVERY DAY active Not Available Not Available No t Available ondansetr on HCl 4 mg tablet TAKE 1 TABLET BY MOUTH TWICE DAILY FOR 5 DAYS NEEDED 07/09 completed Not Available Not Available Not Available valacyclo vir 500 mg tablet Take 1 tablet twice a day by oral route for 3 days. 2024 active Not Available Not Available Not Avai lable paroxetin e 20 mg tablet TAKE 1 TABLET BY MOUTH EVERY DAY 07/09 completed Not Available Not Available Not Available buspirone 10 mg tablet TAKE 1 TABLET BY MOUTH TWICE DAILY active Not Available Not Available No t Available Drysol Dab-O-Mat ic 20 % topical solution APPLY 1-2 TIMES PER WEEK AT BEDTIME NEEDED active Not Available Not Available No t Available epinephri ne 0.3 mg/0.3 mL injection , auto-inje ctor INJECT 1 PEN IN THE MUSCLE NEEDED FOR ALLERGIC REACTION active Not Available Not Available No t Available ondansetr on 4 mg disintegr ating tablet DISSOLVE 1 TABLET ON THE TONGUE EVERY 6 HOURS NEEDED FOR NAUSEA OR VOMITING 05/02 completed Not Available Not Available Not Available fluoxetin e 20 mg capsule TAKE 1 CAPSULE BY MOUTH EVERY DAY 05/02 completed Not Available Not Available Not Available Zoloft 03/20 completed 75mg Daily; 0; Recorded 07/12/19 20 9:19AM by Yamileth Thomas, Office Visit; Not Available Not Available Not Available risperido ne 03/20 completed 0.5mg BID; 0; Recorded 07/12/19 20 9:19AM by Yamileth Thomas, Office Visit; Not Available Not Available Not Available Mirena 2022 active Not Available Not Available Not Avai lable Vitals Date Recorded Body weight Body mass index (BMI) Body height Oxygen saturation Heart rate Respiratory rate Systolic And Diastolic Provider Name and Address Organization Details Last Updated DateTime 5 40918.5 2 g 23.5 kg/m2 165.1 cm 99 % 90 /min 20 /min 110/68 mm[Hg] KIET [facility] 5 13:28:54 Date Recorded Body height Body mass index (BMI) Body weight Oxygen saturation Heart rate Respiratory rate Systolic And Diastolic Provider Name and Address Organization Details Last Updated DateTime 5 165.1 cm 23.3 kg/m2 52270.9 3 g 97 % 88 /min 18 /min 122/84 mm[Hg] KIET TURCIOS [facility] 5 14:30:08 Date Recorded Body height Body mass index (BMI) Body weight Oxygen saturation Heart rate Respiratory rate Systolic And Diastolic Provider Name and Address Organization Details Last Updated DateTime 5 165.1 cm 23.8 kg/m2 76065.7 1 g 98 % 22 /min 20 /min 104/80 mm[Hg] KIET KAROLINA [facility] 5 14:28:37 Date Recorded Body height Body mass index (BMI) Body weight Oxygen saturation Heart rate Respiratory rate Systolic And Diastolic Provider Name and Address Organization Details Last Updated DateTime 5 165.1 cm 23.6 kg/m2 81946.1 2 g 98 % 98 /min 20 /min 100/72 mm[Hg] KIET KAROLINA [facility] 5 11:51:49 Date Recorded Body height Body mass index (BMI) Body weight Body temperature Oxygen saturation Heart rate Systolic And Diastolic Provider Name and Address Organization Details Last Updated DateTime 5 165.1 cm 23.3 kg/m2 73664.9 3 g 97.5 [degF] 99 % 89 /min 110/76 mm[Hg] Grazyna Oumar [facility] 5 14:31:39 Social History Question Answer Notes LastModified by Organizat ion Details LastModified Time Tobacco Smoking Status Current Every Day Smoker KIET KAROLINA [facility] 03/20/2024 13:25:19 What Is Your Level Of Caffeine Consumption? Moderate [email or web address] Information not available 03/20/2024 What Was The Date Of Your Most Recent Tobacco Screening? 07/24/2024 [email or web address] Information not available 07/24/2024 What Is Your Current Pack Years? [email or web address] Information not available 03/20/2024 What Is Your Relationship Status? Domestic Partner [email or web address] Information not available 03/20/2024 At What Age Did You Start Smoking Tobacco? 13 Information not available 03/20/2024 How Much Tobacco Do You Smoke? 0.5 PPD Information not available 03/20/2024 Has Tobacco Cessation Counseling Been Provided? Yes Information not available 03/20/2024 On What Date Was Tobacco Cessation Counseling Provided? 03/20/2024 Information not available 03/20/2024 How Many Years Have You Smoked Tobacco? 10 Information not available 03/20/2024 Have You Used IV Drugs? No [email or web address] Information not available 03/20/2024 Sex: Unknown Functional Status Question Answer Note LastModified by Organizat ion Details LastModified Time How many times per week do you consume alcohol? 1-2 times per week [email or web address] Information not available 07/24/2024 Do you use any illicit or recreational drugs? Yes ocassional weed [email or web address] Information not available 03/20/2024 Do you or have you ever used any other forms of tobacco or nicotine? No Information not available 03/20/2024 What is your level of alcohol consumption? Heavy Hx of alcoholism (Vodka) Last drink was 03/16/2024 Information not available 03/20/2024 Are you currently employed? Yes [email or web address] Information not available 03/20/2024 Are you able to walk independently without assistance or assistive devices? YESWOREST [email or web address] Information not available 03/20/2024 Are you able to care for yourself independently? Yes [email or web address] Information not available 03/20/2024 Do you or have you ever used any nicotine-free cigarettes, vape, or chewing tobacco? No Information not available 03/20/2024 Mental Status None recorded. Family History Relationship Description Onset Age of this Age Resolved Age Notes LastModified by Organization Details LastModified Time Father Type 2 diabetes mellitus Not available 03/20 13:22:51 Mother Essential hypertension [email or web address] Not available 13:23:03 Mother Fibromyalgia [email or web address] Not randi ilable 03/20/2024 13:23:16 Medical History Condition Response Depression Y Anxiety Disorder Y Gynecological HistoryNo gynecological history recorded. Obstetrics History GPAL:G 0 P 0 0 0 0 Immunizations Vaccine Type Date Status Note Provider Ubaldo alonzo and Address Organization Details Recorded Time HPV9 5 completed RAYMOND ARANGO, [facility] [address] [place], [address], [facility] 03/20/2024 13:40:18 IPV 3 completed RAYMOND ARANGO, [facility] [address] [place], [address], [facility] 03/20/2024 13:40:18 IPV 4 completed RAYMONDMitchell PARTIDACONCHITA, [facility] [address] [place], [address], [facility] 03/20/2024 13:40:18 IPV 7 completed RAYMONDMitchell PARTIDACONCHITA, [facility] [address] [place], [address], [facility] 03/20/2024 13:40:18 IPV 2 completed RAYMONDMitchell PARTIDACONCHITA, [facility] [address] [place], [address], [facility] 03/20/2024 13:40:18 MMR 4 completed RAYMOND CONCHITA, [facility] [address] [place], [address], [facility] 03/20/2024 13:40:18 MMRV 7 completed RAYMOND ARANGO, [facility] [address] [place], [address], [facility] 03/20/2024 13:40:18 pneumococcal conjugate PCV 7 3 completed RAYMOND ARANGO, [facility] [address] [place], [address], [facility] LB[facility]etoL.C. 03/20/2024 13:40:18 pneumococcal conjugate PCV 7 3 completed RAYMOND ARANGO, [facility] [address] [place], [address], [facility] 03/20/2024 13:40:18 Tdap 6 completed RAYMOND ARANGO, [facility] [address] [place], [address], [facility] 03/20/2024 13:40:18 varicella 4 completed RAYMOND ARANGO, [facility] [address] [place], [address], [facility] 03/20/2024 13:40:18 pneumococcal, unspecified formulation 2 completed RAYMOND ARANGO, [facility] [address] [place] [address], [address], [facility] 03/20/2024 13:40:18 Hep B, adolescent or pediatric 3 completed RAYMOND RAANGO, [facility] [address] [place] [address], [address], [facility] 03/20/2024 13:40:18 Hep B, adolescent or pediatric 2 completed RAYMOND ARANGO, [facility] [address] [place] [address], [address], [facility] 03/20/2024 13:40:18 Hep B, adolescent or pediatric 2 completed RAYMOND ARANGO, [facility] [address] [place] [address], [address], [facility] 03/20/2024 13:40:19 Hep A, ped/adol, 2 dose 7 completed RAYMOND ARANGO, [facility] [address] [place] [address], [address], [facility] 03/20/2024 13:40:19 Hib (HbOC) 2 completed RAYMOND ARANGO, [address], [address], [facility] 03/20/2024 13:40:19 Hib (PRP-T) 3 completed RAYMOND ARANGO, [address], [address], [facility] 03/20/2024 13:40:19 Hib (PRP-T) 4 completed RAYMOND ARANGO, [address], [address], [facility] 03/20/2024 13:40:19 Hib (PRP-T) 3 completed RAYMOND ARANGO, [address], [address], [facility] 03/20/2024 13:40:19 meningococcal MCV4P 5 completed RAYMOND ARANGO, [address], [address], [facility] 03/20/2024 13:40:19 DTaP 3 completed RAYMOND ARANGO, [address], [address], [facility] 03/20/2024 13:40:19 DTaP 4 completed RAYMOND ARANGO, [address], [address], [facility] 03/20/2024 13:40:19 DTaP 3 completed RAYMOND ARANGO, [address], [address], [facility] 03/20/2024 13:40:19 DTaP 7 completed RAYMOND ARANGO [facility] [address] [place], [address], [facility] [facility] 03/20/2024 13:40:19 DTaP 2 completed RAYMOND ARANGO [facility] [address] [place], [address], [facility] 03/20/2024 13:40:19 Influenza, split virus, trivalent, preservative 6 completed Not Available [facility] 10/01/2022 02:33:20 Past Encounters Encounter ID Performer Location Encounter Start Date Encounter Closed Date Diagnosis/Indication Diagnosis SNOMED-CT Code Diagnosis ICD10 Code Diagnosis IMO Codes Diagnosis Note [id number] RAYMOND ARANGO [facility] ([facility]) [address] [place] [address] 03/20/2024 12:54:09 03/20/2024 13:50:45 Depressive disorder 58277011 F32.9 Genital he rpes simplex 56477634 A60.9 Excessive sweating 59118 005 R61 Alcoholism 5851265 F10.2 0 [id number] RAYMOND ARANGO [facility] ([facility]) [address] [place] [address] 05/02/2024 13:46:46 05/02/2024 14:52:08 Generalized anxiety disorder 46202412 F41.1 [facility] [id number] R11.0 [id number] RAYMOND ARANGO [facility] ([facility]) [address] [place] [address] 05/30/2024 13:44:13 05/30/2024 18:01:05 Generalized anxiety disorder 80042375 F41.1 [id number] RAYMOND ARANGO [facility] ([facility]) [address] [place] [address] 07/09/2024 11:40:15 07/15/2024 15:50:26 Harmful pattern of use of alcohol 14664308 F10.10 [id number] Last drink was 3 days ago. Discussed counseling with patient and she will look into tele medicine for this. Will refer to see Dr. Parker to start Vivitrol. Chronic insomnia 2893128 04 F51.04 [id number] Did not like seroquel. [id number] John Parker MD [facility] ([facility]) [address] [place] [address] 07/24/2024 14:20:47 07/24/2024 15:09:53 History of alcohol use disorder [id number] F10.11 [id number] Her PCP was not comfortabl e carlin g medication s to help with alcohol abuse. The patient was interested in Vivitrol injections but has opted to try oral naltrexone first. We will help manage this concern. All other concerns will be managed by her PCP. Allergy to bee venom [id number] Z91.030 [id number] Will provide refill for EpiPen today. Health Concerns Section Related Observation LastModified by Organization Detai ls LastModified Time None Recorded Concern Status LastModified by Organization Details LastModified Time None Recorded Advance Directives Directive None Recorded Payers Insurance Date Sequence Insurance Name Policy Number Policy Geiger Covered Member ID Geiger Member ID Guarantor Name 07/29/2024 1 [employer] [place] ([place]ICA[place]ACEMENT - [place]MO) [id number] Deyvi Travis [id number] Deyvi Travis Notes Date Note Type Note Provider Name and Address Organization Details Recorded Time 03/20/2024 text/html Annual WellnessReported by PatientSocial/Behavior al HistoryFor additional lifestyle factors, patient reportstobacco useandalcohol misuse. For fracture risk, patient reportsno history of fracturesandno recent explained fracture. For physical activity, patient reportsexercises on a regular basis.Mental Status:For depression risk, patient reportsfeels sad, empty, or tearful. Anxiety/DepressionRepo rted by PatientHPIFor severity, patient reportsincreased anxiety. RAYMOND ARANGO, LARRY [address] [place] [address], [phone], [facility], L.LB[facility]eto[facility]. 03/20/2024 13:49:47 05/02/2024 text/html Generalized Anxi ety DisorderReported by PatientHPIFor onset/timing, patient reportssince childhood. For severity, patient reportsmoderate. RAYMOND ARANGO, [facility] [address] [place], [address], [facility], Luis. 05/03/2024 19:21:13 05/30/2024 text/html Generalized Anxi ety DisorderReported by PatientHPIFor onset/timing, patient reports___ months. For severity, patient reportsmoderate. For context, patient reportsalcohol abuse. RAYMOND ARANGO, [facility] [address] [place], [address], [facility], Luis. 05/30/2024 17:59:06 07/09/2024 text/html InsomniaReported by PatientHPIFor associated symptoms, patient reportsdaytime sleepiness. For quality, patient reportsdifficulty initiating sleep,difficulty maintaining sleep, andwaking up too early. For severity, patient reportsno change. For duration, patient reportschronic. RAYMOND ARANGO, [facility] [address] [place], [address], [facility], KarrieC. 2024 09:59:56 07/24/2024 text/html Generalized Anxi ety DisorderReported by PatientHPIFor associated symptoms, patient reportsdifficulty concentrating,difficul ty controlling worry,excess anxiety,sweating,chest pain,tachycardia,short ness of breath,high irritability,muscle tension,muscle aches,trembling,twitch ing,headaches,restless ness, andsleep disturbances. For onset/timing, patient reports___ months,15 years, andsince childhood. For severity, patient reportsmoderate. For context, patient reportsalcohol abuse. For alleviating factors, (she says she has tried several methonds to help her with the panic episodes and nothing helps her eleviate these anxiety episodes). This is a 24-year-old female that comes in today to discuss her history of alcohol abuse. Patient is interested in trying medication to help decreased alcohol cravings. 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 John Parker MD [address] [place] [address], [phone], [facility], Armand 07/29/2024 15:07:44 OBGyn Episode No OBEpisode recorded.
--- NOTE | 2025-01-30 12:56 | ED_ITS ---
HPI - Abdominal Pain 2 General: Chief Complaint: Nausea/Vomiting/Diarrhea Stated Complaint: Mid ABD Pain N/V Blood Lighthead dizzy Time Seen by Provider: 01/30/25 12:52 Source: patient Mode of arrival: ambulatory Limitations: no limitations History of Present Illness: Patient is a 24-year-old female presents to ED today with complaint of abdominal pain, nausea, vomiting that feels like she vomited blood this morning. Patient states she drank alcohol last night and drank again this morning hoping this would make her feel better but it has not. She states her vomit was a combination of bright and dark blood . She states she has a history of vomiting blood previously. She does not take any medications to help with this. Upon arrival, she appears under the influence and smells of alcohol. She does also admit to habitual marijuana use. She reports normal bowel movements. No fevers. Denies poor food exposures. MD elicited complaint: abdominal pain Pertinent past history: none Onset (ago): hour(s) Pain Consistency: constant Location: Diffuse Severity: moderate Radiation: none Migration to: no migration Relieving factors: nothing Associated Symptoms: Reports hematemesis, nausea and vomiting; Denies chills, diarrhea, dysuria, fever(s), heartburn, hematuria and syncope Related Data Home Medications ?Medication ?Instructions ?Recorded ?Confirmed aluminum-mag hydroxide-simethicone 10 ml PO QID PRN St omach Upset 01/30/25 01/30/25 200 mg-200 mg-20 mg/5 mL oral susp Previous Rx's ?Medication ?Instructions ?Recorded epinephrine 0.3 mg/0.3 mL 0.3 mg (0.3 mL) IM Q15M PRN 09/26/22 injection, auto-injector (EpiPen anaphylaxis #2 ea 2-Peter) Allergies Allergy/AdvReac Type Severity Reaction Status Date / Time bee venom protein (honey bee) Allergy Severe anaphylactic Verified 01/30/25 12:56 shock lidocaine Allergy Severe can't Verified 11/30/24 13:19 breath Review of Systems 2 Const: Denies: fever(s), chills, body aches, fatigue or malaise Eyes: Denies: change in vision or blurry vision Card: Denies: chest pain, palpitations, irregular heart rhythm, lightheadedness, syncope or dyspnea on exertion Resp: Denies: dyspnea, productive cough or pain on inspiration GI: Reports: abdominal pain, nausea, vomiting and hematemesis; Denies: heartburn or diarrhea : Denies: flank pain, dysuria or hematuria Musc: Denies: neck pain, back pain, extremity pain, extremity swelling or joint pain Skin/Breast: Denies: rash Neuro: Denies: headache(s), numbness in extremities, weakness in extremities, sensory changes or dizziness PFSH ED 2 PFSH: Medical History Bipolar 2 disorder PTSD (post-traumatic stress disorder) Cluster B personality disorder ADHD Surgical History No pertinent past surgical history Family History Grandmother Cancer Paternal--unknown Diabetes Paternal Hyperlipidemia Paternal Hypertension Paternal Stroke Paternal Grandfather Cancer Paternal--unknown Hyperlipidemia Paternal Diabetes Paternal Hypertension Paternal Stroke Paternal Other Alcoholism Psychiatric illness Denies family history of CAD (coronary artery disease) Clotting disorder Chronic kidney disease (CKD) Anesthesia complication Bleeding disorder Lung disease Social History Smoking and tobacco/nicotine status: current every day tobacco/nicotine user cigarettes Packs smoked per day: 0.5 Physical Exam 2 Const: COMMON NORMALS: average body habitus, patient oriented x3, healthy appearing, alert and well nourished GENERAL APPEARANCE: cooperative and odor of alcohol detected ORIENTATION/CONSCIOUSNESS: Yes awake, Yes oriented to person, Yes oriented to place and Yes oriented to time OTHER: non-forthcoming with information; smells intoxicated HENMT: COMMON NORMALS: normocephalic and atraumatic HEAD & SCALP: normal to inspection, normocephalic and atraumatic Neck/C-Spine: COMMON NORMALS: full ROM, no lymphadenopathy, supple and no meningeal signs Chest: COMMONS NORMALS: normal inspection of the chest and normal palpation of entire chest wall Resp: COMMON NORMALS: normal respiratory effort and clear to auscultation bilaterally AUSCULTATION: clear to auscultation bilaterally Cardio: COMMON NORMALS: regular rate and regular rhythm RATE: regular rate RHYTHM: regular rhythm GI: COMMON NORMALS: Normal to inspection, nondistended, normoactive bowel sounds present, Soft to palpation, No hepatosplenomegaly present and no masses INSPECTION: Yes normal to inspection AUSCULTATION: Yes normoactive bowel sounds PALPATION: Yes Soft to palpation, Yes Tenderness to palpation present (GI) (reports diffuse tenderness-mild; no guarding; non-surgical exam), No Guarding due to palpation present (GI), No Rigid due to palpation and Yes No hepatosplenomegaly present : COMMON NORMALS: Yes no CVA tenderness BLADDER/KIDNEY EXAM: Yes no CVA tenderness Back/Pelvis: COMMON NORMALS: no CVA tenderness and thoracic and lumbar spine normal to inspection Extremity: COMMON NORMALS: normal to inspection GENERAL: Yes normal exam except as noted Neuro: DILIP COMA SCALE: document GCS findings Dilip coma scale eye opening: Spontaneous [place] coma scale verbal response: Orientated [place] coma scale motor response: Obey commands [place] coma scale total score: 15 COMMON NORMALS: patient oriented x3, moves all extremities, no focal motor deficits, no sensory deficits noted and gait normal SENSORIUM/ORIENTATION: Yes alert, Yes oriented to person, Yes oriented to place and Yes oriented to time MENINGEAL SIGNS: Yes no meningeal signs Skin: COMMON NORMALS: no rashes or lesions noted GENERAL SKIN EXAM: no rashes or lesions noted Course 2 Vital Signs: Vital signs: Vital Signs Pulse Rate 102 H 01/30/25 14:42 Respiratory Rate 20 H 01/30/25 12:49 Blood Pressure 118/71 01/30/25 14:42 Pulse Oximetry 96 01/30/25 14:42 Oxygen Delivery Me thod Room Air 01/30/25 14:37 MDM - Abdominal Pain Medical Decision Making Patient is a 24-year-old female here for abdominal pain, nausea/vomiting with reported hematemesis and acute alcohol intoxication. Alcohol was noted to be 319. She does report a history of chronic alcohol abuse. She had a few episodes of vomiting here and no hematemesis noted. She does feel better after medications and IV fluids-no further vomiting. She has been ambulatory here in ED without difficulty or assistance. Blood work overall is unremarkable. She does have minor elevations to her AST/ALT consistent with her chronic alcohol abuse. Abdominal examination is nonsurgical. Recommend she reach out to detox facility such as [facility] to help with her chronic substance abuse. Also discussed following up with her primary care provider. I would like her to start a PPI x 4 weeks for alcoholic gastritis. Return to ED precautions given. Differential Diagnosis Likely abdominal pain, gastroenteritis and pancreatitis Medical Records I reviewed the patient's medical records. Lab Data I reviewed the patient's lab results. 01/30/25 13:18 01/30/25 13:18 Labs/Radiology: Laboratory Results WBC 8.10 10^3/uL (3.29-11.43) 01/30/25 13:18 RBC 4.41 10^6/uL (3.85-5.65) 01/30/25 13:18 Hgb 15.40 g/dL (11.27-16.99) 01/30/25 13:18 Hct 43.9 % (36-47) 01/30/25 13:18 MCV 99.5 fl (85-98) H 01/30/25 13:18 MCH 34.9 pg (27-33) H 01/30/25 13:18 MCHC 35.1 g/dL (30-55) 01/30/25 13:18 RDW 13.4 % (12.1-15.1) 01/30/25 13:18 Plt Count 370 10^3/cmm (157-399) 01/30/25 13:18 MPV 9.0 fL (7.4-10.4) 01/30/25 13:18 Neut % (Auto) 75.6 % 01/30/25 13:18 Lymph % (Auto) 14.4 % 01/30/25 13:18 Carroll % (Auto) 6.8 % 01/30/25 13:18 Eos % (Auto) 1.0 % 01/30/25 13:18 Baso % (Auto) 1.0 % 01/30/25 13:18 Neut # (Auto) 6.12 10^3/uL (1.8-7.7) 01/30/25 13:18 Lymph # (Auto) 1.2 10^3/uL (0.8-4.8) 01/30/25 13:18 Carroll # (Auto) 0.6 10^3/uL (0.2-0.9) 01/30/25 13:18 Eos # (Auto) 0.1 10^3/uL (0.0-0.8) 01/30/25 13:18 Baso # (Auto) 0.1 10^3/uL (0.0-0.1) 01/30/25 13:18 Nucleated RBC % (auto) 0 % 01/30/25 13:18 Nucleated RBCs # 0.0 /100WBC 01/30/25 13:18 Sodium 142 mmol/L (136-145) 01/30/25 13:18 Potassium 3.8 mmol/L (3.5-5.1) 01/30/25 13:18 Chloride 100 mmol/L (98-107) 01/30/25 13:18 Carbon Dioxide 26 mmol/L (22-29) 01/30/25 13:18 Anion Gap 19.8 (5-19) H 01/30/25 13:18 BUN 8 mg/dL (6-20) 01/30/25 13:18 Creatinine 0.3 mg/dL (0.5-0.9) L 01/30/25 13:18 GFR Calculation 275.7 mL/min (90-130) H 01/30/25 13:18 Glucose 127 mg/dL (65-115) H 01/30/25 13:18 Calculated Osmolality 294 mOsm/kg (285-295) 01/30/25 13:18 Calcium 9.1 mg/dL (8.5-10.5) 01/30/25 13:18 Total Bilirubin 0.3 mg/dL (0.15-1.2) 01/30/25 13:18 AST 143 U/L (0-32) H 01/30/25 13:18 ALT 106 U/L (0-33) H 01/30/25 13:18 Alkaline Phosphatase 78 U/L (35-105) 01/30/25 13:18 Total Protein 8.0 g/dL (6.6-8.7) 01/30/25 13:18 Albumin 4.7 g/dL (3.5-5.2) 01/30/25 13:18 Globulin 3.3 g/dL (1.3-4.6) 01/30/25 13:18 Lipase 30 U/L (13-60) 01/30/25 13:18 HCG, Qual Negative (Negative) 01/30/25 13:18 Ethyl Alcohol 319 mg/dL (0-10) H* 01/30/25 13:18 No radiology studies performed this visit Discharge Plan Discharge Patient Disposition: Home Clinical Impression: Nausea and vomiting Qualifiers: Vomiting type: unspecified Qualified Code(s): R11.2 - Nausea with vomiting, unspecified Acute alcohol intoxication Qualifiers: Complication of substance-induced condition: uncomplicated Qualified Code(s): F 10.920 - Alcohol use, unspecified with intoxication, uncomplicated Condition: Stable Prescriptions: No Action epinephrine [EpiPen 2-Peter] 0.3 mg/0.3 mL auto-injector 0.3 mg IM Q15M PRN (Reason: anaphylaxis) Qty: 2 0RF Rx Instructions: for 3 doses alum-mag hydroxide-simeth [Mylanta] 200-200-20 mg/5 mL Suspension 10 ml PO QID PRN (Reason: Stomach Upset) Rx Instructions: administer between meals and at bedtime Discharge Orders: Discharge ED (Routine); Ordered 01/30/25 Ordered By: Margarita Boudreaux Patient Instructions: Gastritis (DC), Alcohol Intoxication (DC), Abuse of Alcohol (DC), Patient Portal & Olivier Instructions Activity Restrictions/Additional Instructions: As we discussed, I recommend reaching out to [facility] for help of your alcohol abuse. You may also speak to your primary care provider regarding options as well. Labs here were unremarkable apart from elevations in your liver enzymes most likely related to your alcohol use. Your alcohol level today was 319. Chronic alcohol abuse can irritate the lining of your stomach which is most likely why you are experiencing discomfort today. I recommend you begin taking an [id number] medication such as pantoprazole twice daily x 4 weeks and abstain from further alcohol use. You may return to the emergency department at anytime for severe abdominal pain, repetitive episodes of vomiting, lightheadedness/dizziness/passing out episodes, generally feeling worse or unwell, or any other concerns you may have. Print Language: Portuguese Coding Level of Care Code ED Hall Worker for Lynette Patricio
[2025-01-30] MEDS: pantoprazole 40 mg SDV IVP (13:09)
[2025-01-30] MEDS: LORazepam 2 mg/mL INJ 1 mL 1 MG IVP (13:09)
[2025-01-30] MEDS: ondansetron 2 mg/ML SDV 2 mL 4 MG IVP (13:11)
[2025-01-30] MEDS: alum-mag-hydroxide-sime 30 mL UDC PO (13:12)
[2025-01-30] MEDS: sucralfate 1 gm/10 mL Oral Liq UDC PO (13:22)
[2025-01-30 13:24] LABS: Hematocrit 43.9 % (36-47); Hemoglobin 15.40 g/dL (11.27-16.99); Mean Corpuscular HGB Conc 35.1 g/dL (30-55); Mean Corpuscular Hemoglobin 34.9 pg (27-33); Mean Corpuscular Volume 99.5 fl (85-98); Nucleated Red Blood Cells % 0 %; Platelet Count 370 10^3/cmm (157-399); Red Blood Count 4.41 10^6/uL (3.85-5.65); White Blood Count 8.10 10^3/uL (3.29-11.43)
[2025-01-30 13:28] VITALS: PULSE 96; O2SAT 99
[2025-01-30 13:35] LABS: HCG, Serum Qual Negative (Negative)
[2025-01-30 13:40] LABS: Alanine Aminotransferase 106 U/L (0-33); Albumin Level 4.7 g/dL (3.5-5.2); Alkaline Phosphatase 78 U/L (35-105); Anion Gap 19.8 (5-19); Aspartate Amino Transferase 143 U/L (0-32); Blood Urea Nitrogen 8 mg/dL (6-20); Calcium 9.1 mg/dL (8.5-10.5); Carbon Dioxide 26 mmol/L (22-29); Chloride 100 mmol/L (98-107); Globulin 3.3 g/dL (1.3-4.6); Glucose 127 mg/dL (65-115); Lipase 30 U/L (13-60); Osmolality Calculated 294 mOsm/kg (285-295); Potassium 3.8 mmol/L (3.5-5.1); Sodium 142 mmol/L (136-145); Total Protein 8.0 g/dL (6.6-8.7)
[2025-01-30 13:42] LABS: Alcohol Level 319 mg/dL (0-10)
--- NOTE | 2025-01-30 13:46 | PC.NURSE ---
pt attempted to obtain urine sample, states was unable. ED provider notified
[2025-01-30] MEDS: metoclopramide 5 mg/mL SDV 2 mL 10 MG IVP (13:56)
[2025-01-30 14:37] VITALS: PULSE 103; O2SAT 96
[2025-01-30 14:42] VITALS: BP 118/71; PULSE 102; O2SAT 96
[2025-01-30] MEDS: ondansetron hcl ODT 4 mg Tab 8 MG PO (14:55)
== END 2025-01-30 14:55 | disposition home or self-care (01) ==
PROVIDERS: Emergency Provider Physician Assistant
DX: R11.2 Nausea with vomiting, unspecified (principal); F10.920 Alcohol use, unspecified with intoxication, uncomplicated; Y90.8 Blood alcohol level of 240 mg/100 ml or more; F17.210 Nicotine dependence, cigarettes, uncomplicated
CPT/HCPCS: 36415; 80053; 80307; 83690; 84703; 85025; 96361; 96374; 96375; 99285; J2060; J2405; J2470; J2765; J7030; J7040; J9999; Q0162